=== PATIENT | female | born 1960 | race Caucasian/White ===

== ENCOUNTER → 2020-04-06 09:39 | Outpatient (BNVA) | payer OTHER, SELFPAY | PROVIDERS: PCP Internal Medicine; Referring Provider Internal Medicine; Visit Provider Hospitalist | DX: R91.8 Other nonspecific abnormal finding of lung field (principal); J18.9 Pneumonia, unspecified organism; J44.9 Chronic obstructive pulmonary disease, unspecified; Z87.891 Personal history of nicotine dependence; Z23 Encounter for immunization | CPT/HCPCS: 90686 ==

== ENCOUNTER → 2020-05-01 11:22 | Outpatient (BNVA) | payer OTHER, SELFPAY | PROVIDERS: PCP Internal Medicine; Visit Provider Surgery | DX: R91.8 Other nonspecific abnormal finding of lung field (principal) | CPT/HCPCS: 99204 ==

== ENCOUNTER → 2020-10-20 15:04 | Outpatient (BNVA) | payer OTHER, SELFPAY | PROVIDERS: PCP Internal Medicine; Visit Provider Hospitalist ==

== ENCOUNTER → 2021-04-29 15:13 | Outpatient (BNVA) | payer OTHER, SELFPAY | PROVIDERS: PCP Internal Medicine; Visit Provider Hospitalist ==

== ENCOUNTER → 2021-09-17 15:05 | Outpatient (BNVA) | payer OTHER, SELFPAY | PROVIDERS: PCP Internal Medicine; Visit Provider Hospitalist | DX: J44.9 Chronic obstructive pulmonary disease, unspecified (principal); J18.9 Pneumonia, unspecified organism; R91.8 Other nonspecific abnormal finding of lung field ==

== ENCOUNTER 2022-08-01 11:21 | Outpatient (REF) | payer MEDICAID, SELFPAY ==
--- NOTE | ~2022-08-01 | XR_ITS ---
EXAMINATION: XR CHEST CLINICAL INFORMATION: Bronchopneumonia COMPARISON: Chest CT 09/07/2021 TECHNIQUE: 2 views of the chest were obtained. FINDINGS: No focal consolidation, pulmonary edema, or pleural effusion. Right upper lobe mixed attenuation lesion demonstrated on the is not apparent radiographically. Normal cardiomediastinal silhouette. XR/XR chest 2V IMPRESSION: Unremarkable examination.
== END 2022-08-01 11:22 | disposition home or self-care (01) ==
LOC: HO.XRAY 11:21
PROVIDERS: PCP Internal Medicine; Visit Provider Hospitalist
DX: J18.0 Bronchopneumonia, unspecified organism (principal); R91.8 Other nonspecific abnormal finding of lung field; J18.9 Pneumonia, unspecified organism; J41.0 Simple chronic bronchitis
CPT/HCPCS: 71046; 99212

== ENCOUNTER → 2022-08-18 09:52 | Outpatient (BNVA) | payer MEDICAID, SELFPAY | PROVIDERS: PCP Internal Medicine; Visit Provider Hospitalist | DX: R91.8 Other nonspecific abnormal finding of lung field (principal); J41.0 Simple chronic bronchitis; J18.9 Pneumonia, unspecified organism | CPT/HCPCS: 99212 ==

== ENCOUNTER → 2022-10-14 10:47 | Outpatient (BNVA) | payer OTHER, SELFPAY | PROVIDERS: PCP Internal Medicine; Visit Provider Surgery | DX: R91.1 Solitary pulmonary nodule (principal) | CPT/HCPCS: 99202 ==

== ENCOUNTER 2022-11-08 09:15 | Outpatient (REF) | payer OTHER, SELFPAY ==
--- NOTE | 2022-11-08 10:00 | PFT_ITS ---
Forced vital capacity 78%, FEV1 79%, FEV1/FVC ratio is 77. [id number] 68% and MVV is 79%. Post bronchodilator therapy, there is no significant change. Total lung capacity 102%. Residual volume 107%. Diffusion capacity 114% CONCLUSION: There is possible very mild degree of small airway obstructive disorder with minimal improvement after bronchodilator therapy. Clinical correlation is recommended. MD PRIYANK Santos/MODL / [id number]
== END 2022-11-08 09:16 | disposition home or self-care (01) ==
LOC: HO.RESP 09:15
PROVIDERS: PCP Internal Medicine; Visit Provider Surgery
DX: R91.1 Solitary pulmonary nodule (principal)
CPT/HCPCS: 94010; 94727; 94729

== ENCOUNTER → 2022-11-11 11:11 | Outpatient (BNVA) | payer OTHER, SELFPAY | PROVIDERS: PCP Internal Medicine; Visit Provider Surgery | DX: R91.1 Solitary pulmonary nodule (principal); Z87.891 Personal history of nicotine dependence | CPT/HCPCS: 99212 ==

== ENCOUNTER 2022-12-15 09:49 | Outpatient (REF) | payer OTHER, SELFPAY ==
--- NOTE | ~2022-12-15 | CT_ITS ---
EXAMINATION: CT CHEST WITHOUT CONTRAST CLINICAL INFORMATION: Pulmonary nodule follow-up COMPARISON: Chest CT 09/20/2022 TECHNIQUE: Multidetector volumetric CT imaging of the chest was done. Axial MIP volume rendering provided. Sagittal and coronal reformatted images were obtained. This CT examination was performed using dose optimization techniques as appropriate, variously including the following: *Automated exposure control *Adjustment of mA and/or kV according to patient size (this includes techniques or standardized protocols for targeted exams where dose is matched to indication/reason for exam; i.e. extremities or head) *Use of iterative reconstruction technique DLP: 111 mGy-cm FINDINGS: Central airways are patent. Lungs are adequately aerated. Mild to moderate emphysematous changes are again noted. Stable size and appearance of mixed right upper lobe lesion demonstrating a central cystic focus with a peripheral groundglass halo. No new suspicious pulmonary nodules are visualized. No pleural effusion or pneumothorax. The heart is normal in size. Coronary artery calcifications are present. There is no pericardial effusion. Normal caliber thoracic aorta. No gross mediastinal or hilar lymphadenopathy appreciated on today's noncontrast imaging. No pathologically enlarged axillary lymph nodes. Visualized portion of the upper abdomen again demonstrate a left hepatic cyst. Mild to moderate diffuse degenerative changes of the spine. CT/CT chest wo IV con IMPRESSION: Stable size and appearance of mixed right upper lobe lesion. No new suspicious pulmonary nodules visualized. Fleischner guidelines were followed.
== END 2022-12-15 09:50 | disposition home or self-care (01) ==
LOC: HO.CT 09:49
PROVIDERS: PCP Nurse Practitioner Family; Visit Provider Surgery
DX: R91.1 Solitary pulmonary nodule (principal)
CPT/HCPCS: 71250

== ENCOUNTER 2023-01-16 15:41 | Outpatient (AMB) | payer OTHER, SELFPAY ==
[2023-01-16 15:50] VITALS: BP 136/60; PULSE 73; O2SAT 99; BMI 26.4
--- NOTE | 2023-01-16 15:50 | A.OFFVIS_ITS ---
Intake Vital Signs 01/16/23 15:50 Height 4 ft 8 in Weight 117 lb 15.157 oz BMI 26.4 BP 136/60 Blood Pressure Location Rt brachial Position Sitting Pulse 73 Pulse Source Pulse Oximeter Pulse Oximetry (%) 99 Oxygen Delivery Method Room Air Intake Visit Reasons: COPD Telecommunications Linesworker Required: No Allergies Keflex Allergy (Mild, Uncoded 01/16/23 15:54) Swelling in throat PCN Allergy (Mild, Uncoded 01/16/23 15:54) Itches and Rash HPI HPI Comments History of Present Illness Details The patient is a 62-year-old woman with a known history of asthma COPD overlap syndrome, mold allergies in pulmonary nodules. The patient has had multiple pulmonary nodules which appeared to be ground-glass the or subsolid in nature. Apparently manifesting more in the upper lung zones. Her last CT scan of the chest was done back in November of 2017 demonstrating stable nodular densities when compared to 2017. At this point the patient continues to smoke unfortunately. She is trying to cut down. At this she is high risk for malignancy. Has a significant family history of different cancers in the family. Therefore this point the patient is to be re-evaluated. In the meantime back in June she was diagnosed with the flu. She was given Tamiflu and also diagnosed with a COPD exacerbation. She was given prednisone and subsequently was also giving antibiotics have so she was not getting any better. She still having wo rsening cough productive in nature along with shortness of breath. 02/10/2020 the patient is here for pulmonary follow-up visit. Overall she feels like she is getting worse. She is developing more shortness of breath and also cough. Moderate severity. She is using her inhaler but is only partially helpful. In addition to that we did look at her CT scan of the chest that she had back in October of 2019 which demonstrated the persistent ground-glass opacities in a centrilobular distribution mainly in the upper lung zones. In addition to that appears to have a subsolid density without ground-glass component measuring 1.5 cm in size. This is bigger than when she had a CT scan back in 2015. Therefore is concerning of a smoldering malignant process. However, she also has other inflammatory changes 2nd be manifesting in this fashion. She understands that she needs to quit smoking. We did talk about different alternatives at this point she is going to try just continue to cut down further as she has gone from 3 packs to just 10 cigarettes a day. Will plan to get the CT scan 6 months from her prior and will discuss further interventions depending on its size. In the meantime will optimize respiratory therapy and hopefully the patient continue cutting down on the cigarette smoking. 09/17/2021 the patient is here for a pulmonary follow-up visit. Recently she lost her sister and she went to her in [place]. She has been significantly affected by this loss. She is still grieving. Unfortunately because of that she continues to smoke cigarettes. She understands the ci garettes are causing significant harm in her chest. She continues to require her inhalers due to the significant inflammation the smoking as cost or. On previous CT scans we have looked that she does have areas of central lobular ground-glass opacities consistent with respiratory bronchiolitis interstitial lung disease related To the smoking. In addition to that she did have a recent CT scan of the chest that we personally reviewed demonstrating interval increase in the right-sided ground-glass subsolid nodular density. She was evaluated by thoracic surgery in the past. At that time the nodule was not changing much. Will present her getting to a conference because the concerns that this could be a smoldering malignant process. Since 2019 this nodule has significant increase in size. Although she does have other areas of ground-glass opacities this nodule appears to be a different process altogether. Smoldering malignancy is in the in the differential. 08/01/2022 the patient is here for a pulmonary follow-up visit. She was last seen about a year ago. The patient recently came back from [place]. She apparently developed a cough and chest congestion which she was there. Seemed to have worsened when she got back to this mass uses. She has been having increasing chest congestion. Difficult to expectorate. Also having some shortness of breath and chest discomfort. The discomfort is actually more in her back in the mid back area moderate severity. Some respiratory basic component. On examination the patient does have been improved breath sounds overall except in the left base which she has rhonchi crackles concerning for bronchopneumonia. Will go ahead and treated for bronchopneumonia. She is also going to have a chest x-ray. She also continues with respiratory therapy with good response. 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 08/18/2022 the patient is here for a pulmonary follow-up visit. She completed the prednisone and also the Levaquin. She feels better. The cough is better. She still has some shortness of breath and still feels tired. We did review her chest x-ray demonstrating no acute disease although clinically she did have crackles in the left base. She continues with the inhaler therapy which is helpful. We did review her last CT scan of the chest that was done back in July 2021. the patient does have concerning pulmonary nodule summer subsolid in nature. Therefore, will repeat her CT scan 1 year from her last. The patient does have a smoking history therefore high risk for cancer. 01/16/2023 the patient is here for pulmonary follow-up visit. Since we spoke the patient was evaluated by thoracic surgery and she did undergo a right upper lobe lobectomy for lung cancer. The patient also has significant edematous hyperplasia in the right upper lobe suggesting premalignant conditions. She does not have any other significant nodules on the left hemithorax or in the right lower lobe but, I explained to the patient that these findings with suggest that needs to be monitored very closely for any recurrent cancer. The meantime she continues use her respiratory therapy as prescribed. Postoperatively she did develop worsening chest tightness and wheezing and productive cough. She was treated with ciprofloxacin. Will go ahead and give her a 2nd course of antibiotics with doxycycline and also start him budesonide to help her with her wheezing and chest tightness. If the patient is no better she can start prednisone. However, hold off on the prednisone for now to allow better wound healing. If the patient worsens she is to call us for an earlier assessment. The patient also has been complaining daytime drowsiness. EPWORTH score 10/24. Documented apnea noted and also snorring documented. [facility] Medical History (Updated 01/16/23 @ 21:07 by aPulo Brunner MD) Bronchopneumonia COPD (chronic obstructive pulmonary disease) Lung cancer Pneumonitis Pulmonary nodule Pulmonary nodules Tobacco dependence Family History Other Testicular cancer Social History Patient Tobacco Use Status: Former Tobacco user Tobacco use type: Cigarette Years Smoked: 40+ years Review of Systems Const Reports daytime sleepiness, Denies night sweats, Reports snoring and Reports stops breathing during sleep Eyes Reports as per HPI ENT Denies change in voice, Denies lip swelling, Denies mouth pain, Reports nasal congestion, Reports nasal discharge and Denies tongue swelling Card Denies chest pain and Reports dyspnea on exertion Resp Denies change in phlegm color, Reports chest congestion, Reports cough, Denies hemoptysis, Reports pain on inspiration, Reports pain with cough, Reports dyspnea on exertion, Reports snoring and Reports wheezing GI Denies abdominal pain Musc Denies no additional complaints and Reports tingling Neuro Denies Neuro-related abnormal movements, Reports tingling and Reports paresthesias Psych Denies no additional complaints [place]/Lymph Denies easy bleeding and Denies lymphadenopathy Aller/Immun Denies lip swelling, Denies tongue swelling and Reports wheezing Physical Exam Vital Signs: Last Vital Signs Pulse 73 01/16/23 15:50 BP 136/60 01/16/23 15:50 Pulse Ox 99 01/16/23 15:50 Oxygen Delivery Method Room Air 01/16/23 15:50 BMI result Body Mass Index 26.4 Const General: alert Neck Neck: Yes normal visual inspection, Yes full ROM and Yes no lymphadenopathy Chest Chest palpation & inspection: normal inspection of the chest Resp Auscultation: no crackles, no rhonchi, no wheezes and diminished lung sounds Cardio Rate: regular rate Rhythm: regular rhythm Heart sounds: S1 normal heart sound present and S2 normal heart sound present GI Palpation (GI): Soft to palpation and nontender Auscultation: normal bowel sounds General: Yes no CVA tenderness Back/Spine/Pelvis Back: no CVA tenderness Skin General skin exam: rashes and/or lesions noted Assessment & Plan Assessment & Plan (1) COPD (chronic obstructive pulmonary disease): Code(s): J44.9 - Chronic obstructive pulmonary disease, unspecified Qualifiers: COPD type: chronic bronchitis Chronic bronchitis type: simple Qualified Code(s): J41.0 - Simple chronic bronchitis (2) Lung cancer: Code(s): C34.90 - Malignant neoplasm of unspecified part of unspecified bronchus or lung (3) YASMANI (obstructive sleep apnea): Code(s): G47.33 - Obstructive sleep apnea (adult) (pediatric) Plan CT chest per Thoracic surgery protocol continue Breztri Nebulizer with duoneb 2-3 times aday Add BUdesonide daily Doxycycline x 14 days Prednisone if no better home sleep study tobacco cessation: patch F/U 3-4 months Medications: New doxycycline monohydrate 100 mg PO BID 14 days 28 tabs 0RF prednisone PO daily; Take 2 tabs daily x 5 days, then 1 tablet daily x 5 days 10 days 15 tabs 0RF Quality Reporting (2019) Adult ([facility] 13808/10/68) Smoking risk assessment performed?: Yes Patient Tobacco Use Status: Former Tobacco user Coding Level of Care Code Est Pt Level 4 (55660) Diagnoses COPD (chronic obstructive pulmonary disease) J41.0 COPD type: chronic bronchitis Chronic bronchitis type: simple Lung cancer C34.90 YASMANI (obstructive sleep apnea) G47.33 Time Spent (min) 20
== END 2023-01-16 16:21 | disposition home or self-care (01) ==
PROVIDERS: PCP Nurse Practitioner Family; Visit Provider Hospitalist
DX: J41.0 Simple chronic bronchitis (principal); C34.90 Malignant neoplasm of unspecified part of unspecified bronchus or lung; G47.33 Obstructive sleep apnea (adult) (pediatric)
CPT/HCPCS: 99214

== ENCOUNTER → 2023-01-16 15:41 | Outpatient (BNVA) | payer OTHER, SELFPAY | PROVIDERS: PCP Nurse Practitioner Family; Visit Provider Hospitalist | DX: J41.0 Simple chronic bronchitis (principal); G47.33 Obstructive sleep apnea (adult) (pediatric); C34.90 Malignant neoplasm of unspecified part of unspecified bronchus or lung | CPT/HCPCS: 99212 ==

== ENCOUNTER 2023-04-05 11:20 | Outpatient (AMB) | payer OTHER, SELFPAY ==
[2023-04-05 11:23] VITALS: PULSE 82; O2SAT 96; BMI 26.4
--- NOTE | 2023-04-05 11:23 | MHC.OFFVIS ---
Intake Vital Signs 04/05/23 11:23 Height 4 ft 8 in Weight 117 lb 15.157 oz BMI 26.4 Pulse 82 Pulse Source Pulse Oximeter Pulse Oximetry (%) 96 Oxygen Delivery Method Room Air Intake Visit Reasons: COPD Diploma Maker Required: No Allergies Keflex Allergy (Mild, Uncoded 04/05/23 11:25) Swelling in throat PCN Allergy (Mild, Uncoded 04/05/23 11:25) Itches and Rash HPI HPI Comments History of Present Illness Details The patient is a 62-year-old woman with a known history of asthma COPD overlap syndrome, mold allergies in pulmonary nodules. The patient has had multiple pulmonary nodules which appeared to be ground-glass the or subsolid in nature. Apparently manifesting more in the upper lung zones. Her last CT scan of the chest was done back in November of 2017 demonstrating stable nodular densities when compared to 2017. At this point the patient continues to smoke unfortunately. She is trying to cut down. At this she is high risk for malignancy. Has a significant family history of different cancers in the family. Therefore this point the patient is to be re-evaluated. In the meantime back in June she was diagnosed with the flu. She was given Tamiflu and also diagnosed with a COPD exacerbation. She was given prednisone and subsequently was also giving antibiotics have so she was not getting any better. She still having worsening cough productive in nature along with shortness of breath. 02/10/2020 the patient is here for pulmonary follow-up visit. Overall she feels like she is getting worse. She is developing more shortness of breath and also cough. Moderate severity. She is using her inhaler but is only partially helpful. In addition to that we did look at her CT scan of the chest that she had back in October of 2019 which demonstrated the persistent ground-glass opacities in a centrilobular distribution mainly in the upper lung zones. In addition to that appears to have a subsolid density without ground-glass component measuring 1.5 cm in size. This is bigger than when she had a CT scan back in 2015. Therefore is concerning of a smoldering malignant process. However, she also has other inflammatory changes 2nd be manifesting in this fashion. She understands that she needs to quit smoking. We did talk about different alternatives at this point she is going to try just continue to cut down further as she has gone from 3 packs to just 10 cigarettes a day. Will plan to get the CT scan 6 months from her prior and will discuss further interventions depending on its size. In the meantime will optimize respiratory therapy and hopefully the patient continue cutting down on the cigarette smoking. 09/17/2021 the patient is here for a pulmonary follow-up visit. Recently she lost her sister and she went to her in [place]. She has been significantly affected by this loss. She is still grieving. Unfortunately because of that she continues to smoke cigarettes. She understands the cigarettes are causing significant harm in her chest. She continues to require her inhalers due to the significant inflammation the smoking as cost or. On previous CT scans we have looked that she does have areas of central lobular ground-glass opacities consistent with respiratory bronchiolitis interstitial lung disease related To the smoking. In addition to that she did have a recent CT scan of the chest that we personally reviewed demonstrating interval increase in the right-sided ground-glass subsolid nodular density. She was evaluated by thoracic surgery in the past. At that time the nodule was not changing much. Will present her getting to a conference because the concerns that this could be a smoldering malignant process. Since 2019 this nodule has significant increase in size. Although she does have other areas of ground-glass opacities this nodule appears to be a different process altogether. Smoldering malignancy is in the in the differential. 08/01/2022 the patient is here for a pulmonary follow-up visit. She was last seen about a year ago. The patient recently came back from [place]. She apparently developed a cough and chest congestion which she was there. Seemed to have worsened when she got back to this mass uses. She has been having increasing chest congestion. Difficult to expectorate. Also having some shortness of breath and chest discomfort. The discomfort is actually more in her back in the mid back area moderate severity. Some respiratory basic component. On examination the patient does have been improved breath sounds overall except in the left base which she has rhonchi crackles concerning for bronchopneumonia. Will go ahead and treated for bronchopneumonia. She is also going to have a chest x-ray. She also continues with respiratory therapy with good response. 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 08/18/2022 the patient is here for a pulmonary follow-up visit. She completed the prednisone and also the Levaquin. She feels better. The cough is better. She still has some shortness of breath and still feels tired. We did review her chest x-ray demonstrating no acute disease although clinically she did have crackles in the left base. She continues with the inhaler therapy which is helpful. We did review her last CT scan of the chest that was done back in July 2021. the patient does have concerning pulmonary nodule summer subsolid in nature. Therefore, will repeat her CT scan 1 year from her last. The patient does have a smoking history therefore high risk for cancer. 01/16/2023 the patient is here for pulmonary follow-up visit. Since we spoke the patient was evaluated by thoracic surgery and she did undergo a right upper lobe lobectomy for lung cancer. The patient also has significant edematous hyperplasia in the right upper lobe suggesting premalignant conditions. She does not have any other significant nodules on the left hemithorax or in the right lower lobe but, I explained to the patient that these findings with suggest that needs to be monitored very closely for any recurrent cancer. The meantime she continues use her respiratory therapy as prescribed. Postoperatively she did develop worsening chest tightness and wheezing and productive cough. She was treated with ciprofloxacin. Will go ahead and give her a 2nd course of antibiotics with doxycycline and also start him budesonide to help her with her wheezing and chest tightness. If the patient is no better she can start prednisone. However, hold off on the prednisone for now to allow better wound healing. If the patient worsens she is to call us for an earlier assessment. The patient also has been complaining daytime drowsiness. EPWORTH score 10/24. Documented apnea noted and also snorring documented. 04/05/2023 the patient is here for pulmonary follow-up visit. The patient continues to do well after her surgery for her lung cancer. Stage I is did not need any adjuvant therapies. She does complaint of a cough which has been productive in nature since after surgery. Has not gotten any worse but just has not gotten any better either. Denies any fevers or chills. Denies any worsening shortness of breath. Will go ahead and treat her with doxycycline for potential smoldering infection. Unfortunately to the patient continues to smoke cigarettes. She is been struggling specially when she gets agitated. Will go ahead and prescribe her nicotine patches and also hopefully she can get the Nicotrol inhaler that she can use as breakthrough. She is following closely with thoracic surgery in her next CT scan be in June. If her cough is no better she can always call we can do a chest x-ray on earlier time. However, this point take as necessary. [facility] Medical History (Updated 04/05/23 @ 22:14 by Paulo Brunner MD) Lung cancer Pulmonary nodule Bronchopneumonia Tobacco dependence Pneumonitis Pulmonary nodules COPD (chronic obstructive pulmonary disease) Family History Other Testicular cancer Social History Patient Tobacco Use Status: Former Tobacco user Tobacco use type: Cigarette Years Smoked: 40+ years Review of Systems Const Reports difficulty sleeping and Denies night sweats Eyes Reports as per HPI ENT Denies change in voice, Denies lip swelling, Denies mouth pain, Reports nasal congestion, Reports nasal discharge and Denies tongue swelling Card Denies chest pain and Reports dyspnea on exertion Resp Denies change in phlegm color, Reports chest congestion, Reports cough, Denies hemoptysis, Denies pain on inspiration, Denies pain with cough, Reports dyspnea on exertion and Denies wheezing GI Denies abdominal pain Musc Denies no additional complaints and Reports tingling Neuro Denies Neuro-related abnormal movements, Reports tingling and Reports paresthesias Psych Denies no additional complaints U[place]ano/Lymph Denies easy bleeding and Denies lymphadenopathy Aller/Immun Denies lip swelling, Denies tongue swelling and Denies wheezing Physical Exam Vital Signs: Last Vital Signs Pulse 82 04/05/23 11:23 Pulse Ox 96 04/05/23 11:23 Oxygen Delivery Method Room Air 04/05/23 11:23 BMI result Body Mass Index 26.4 Const General: alert Neck Neck: Yes normal visual inspection, Yes full ROM and Yes no lymphadenopathy Chest Chest palpation & inspection: normal inspection of the chest Resp Auscultation: no crackles, no rhonchi, no wheezes and diminished lung sounds Cardio Rate: regular rate Rhythm: regular rhythm Heart sounds: S1 normal heart sound present and S2 normal heart sound present GI Palpation (GI): Soft to palpation and nontender Auscultation: normal bowel sounds General: Yes no CVA tenderness Back/Spine/Pelvis Back: no CVA tenderness Skin General skin exam: rashes and/or lesions noted Assessment & Plan Assessment & Plan (1) COPD (chronic obstructive pulmonary disease): Code(s): J44.9 - Chronic obstructive pulmonary disease, unspecified Qualifiers: COPD type: chronic bronchitis Chronic bronchitis type: mixed simple and mucopurulent Qualified Code(s): J41.8 - Mixed simple and mucopurulent chronic bronchitis (2) Lung cancer: Code(s): C34.90 - Malignant neoplasm of unspecified part of unspecified bronchus or lung Qualifiers: Laterality: right Lung location: upper lobe of lung Qualified Code(s): C34.11 - Malignant neoplasm of upper lobe, right bronchus or lung (3) YASMANI (obstructive sleep apnea): Code(s): G47.33 - Obstructive sleep apnea (adult) (pediatric) Plan CT chest per Thoracic surgery protocol continue Breztri Nebulizer with duoneb 2-3 times aday as needed Doxycycline x 14 days tobacco cessation: patch/nicotrol inhaler F/U 4-6 months Medications: New nicotine 1 patch transdermal DAILY 28 days 28 ea 3RF doxycycline monohydrate 100 mg PO BID 14 days 28 tabs 0RF Changed From albuterol sulfate 90 mcg/actuation inhalation To albuterol sulfate 90 mcg/actuation 2 puffs inhalation Q6H 30 days PRN 8.5 grams 11RF bronchospasm Quality Reporting (2019) Adult ([facility] 138/08/10/68) Smoking risk assessment performed?: Yes Patient Tobacco Use Status: Former Tobacco user Coding Level of Care Code Est Pt Level 4 (20086) Diagnoses Mixed simple and mucopurulent chronic bronchitis J41.8 COPD type: chronic bronchitis Chronic bronchitis type: mixed simple and mucopurulent Malignant neoplasm of upper lobe of right lung C34.11 Laterality: right Lung location: upper lobe of lung YASMANI (obstructive sleep apnea) G47.33 Time Spent (min) 17
== END 2023-04-05 11:47 | disposition home or self-care (01) ==
PROVIDERS: PCP Nurse Practitioner Family; Visit Provider Hospitalist
DX: J41.8 Mixed simple and mucopurulent chronic bronchitis (principal); C34.11 Malignant neoplasm of upper lobe, right bronchus or lung; G47.33 Obstructive sleep apnea (adult) (pediatric)
CPT/HCPCS: 99214

== ENCOUNTER → 2023-04-05 11:20 | Outpatient (BNVA) | payer OTHER, SELFPAY | PROVIDERS: PCP Nurse Practitioner Family; Visit Provider Hospitalist | DX: J41.8 Mixed simple and mucopurulent chronic bronchitis (principal); C34.11 Malignant neoplasm of upper lobe, right bronchus or lung; G47.33 Obstructive sleep apnea (adult) (pediatric) | CPT/HCPCS: 99212 ==

== ENCOUNTER 2023-10-10 11:19 | Outpatient (AMB) | payer OTHER, SELFPAY ==
--- NOTE | 2023-10-10 11:30 | A.OFFVIS_ITS ---
Vital Signs 10/10/23 11:31 Height 4 ft 8 in Weight 117 lb 15.157 oz BMI 26.4 BP 138/70 Blood Pressure Location Lt brachial Position Sitting Pulse 66 Pulse Source Pulse Oximeter Pulse Oximetry (%) 100 Oxygen Delivery Method Room Air Intake Visit Reasons: COPD Outside Industrial Sales Representative Required: No Allergies Keflex Allergy (Mild, Uncoded 10/10/23 11:34) Swelling in throat PCN Allergy (Mild, Uncoded 10/10/23 11:34) Itches and Rash HPI Comments Details: The patient is a 62-year-old woman with a known history of asthma COPD overlap syndrome, mold allergies in pulmonary nodules. The patient has had multiple pulmonary nodules which appeared to be ground-glass the or subsolid in nature. Apparently manifesting more in the upper lung zones. Her last CT scan of the chest was done back in November of 2017 demonstrating stable nodular densities when compared to 2017. At this point the patient continues to smoke unfortunately. She is trying to cut down. At this she is high risk for malignancy. Has a significant family history of different cancers in the family. Therefore this point the patient is to be re-evaluated. In the meantime back in June she was diagnosed with the flu. She was given Tamiflu and also diagnosed with a COPD exacerbation. She was given prednisone and subsequently was also giving anti biotics have so she was not getting any better. She still having worsening cough productive in nature along with shortness of breath. 02/10/2020 the patient is here for pulmonary follow-up visit. Overall she feels like she is getting worse. She is developing more shortness of breath and also cough. Moderate severity. She is using her inhaler but is only partially helpful. In addition to that we did look at her CT scan of the chest that she had back in October of 2019 which demonstrated the persistent ground-glass opacities in a centrilobular distribution mainly in the upper lung zones. In addition to that appears to have a subsolid density without ground-glass component measuring 1.5 cm in size. This is bigger than when she had a CT scan back in 2015. Therefore is concerning of a smoldering malignant process. However, she also has other inflammatory changes 2nd be manifesting in this fashion. She understands that she needs to quit smoking. We did talk about different alternatives at this point she is going to try just continue to cut down further as she has gone from 3 packs to just 10 cigarettes a day. Will plan to get the CT scan 6 months from her prior and will discuss further interventions depending on its size. In the meantime will optimize respiratory therapy and hopefully the patient continue cutting down on the cigarette smoking. 09/17/2021 the patient is here for a pulmonary follow-up visit. Recently she lost her sister and she went to her in [place]. She has been significantly affected by this loss. She is still grieving. Unfortunately because of that she continues to smoke cigarettes. She understands the cigarettes are causing significant harm in her chest. She continues to require her inhalers due to the significant inflammation the smoking as cost or. On previous CT scans we have looked that she does have areas of central lobular ground-glass opacities consistent with respiratory bronchiolitis interstitial lung disease related To the smoking. In addition to that she did have a recent CT scan of the chest that we personally reviewed demonstrating interval increase in the right-sided ground-glass subsolid nodular density. She was evaluated by thoracic surgery in the past. At that time the nodule was not changing much. Will present her getting to a conference because the concerns that this could be a smoldering malignant process. Since 2019 this nodule has significant increase in size. Although she does have other areas of ground-glass opacities this nodule appears to be a different process altogether. Smoldering malignancy is in the in the differential. 08/01/2022 the patient is here for a pulmonary follow-up visit. She was last seen about a year ago. The patient recently came back from [place]. She apparently developed a cough and chest congestion which she was there. Seemed to have worsened when she got back to this mass uses. She has been having increasing chest congestion. Difficult to expectorate. Also having some shortness of breath and chest discomfort. The discomfort is actually more in her back in the mid back area moderate severity. Some respiratory basic component. On examination the patient does have been improved breath sounds overall except in the left base which she has rhonchi crackles concerning for bronchopneumonia. Will go ahead and treated for bronchopneumonia. She is also going to have a chest x-ray. She also continues with respiratory therapy with good response. 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 08/18/2022 the patient is here for a pulmonary follow-up visit. She completed the prednisone and also the Levaquin. She feels better. The cough is better. She still has some shortness of breath and still feels tired. We did review her chest x-ray demonstrating no acute disease although clinically she did have crackles in the left base. She continues with the inhaler therapy which is helpful. We did review her last CT scan of the chest that was done back in July 2021. the patient does have concerning pulmonary nodule summer subsolid in nature. Therefore, will repeat her CT scan 1 year from her last. The patient does have a smoking history therefore high risk for cancer. 01/16/2023 the patient is here for pulmonary follow-up visit. Since we spoke the patient was evaluated by thoracic surgery and she did undergo a right upper lobe lobectomy for lung cancer. The patient also has significant edematous hyperplasia in the right upper lobe suggesting premalignant conditions. She does not have any other significant nodules on the left hemithorax or in the right lower lobe but, I explained to the patient that these findings with suggest that needs to be monitored very closely for any recurrent cancer. The meantime she continues use her respiratory therapy as prescribed. Postoperatively she did develop worsening chest tightness and wheezing and productive cough. She was treated with ciprofloxacin. Will go ahead and give her a 2nd course of antibiotics with doxycycline and also start him budesonide to help her with her wheezing and chest tightness. If the patient is no better she can start prednisone. However, hold off on the prednisone for now to allow better wound healing. If the patient worsens she is to call us for an earlier assessment. The patient also has been complaining daytime drowsiness. EPWORTH score 10/24. Documented apnea noted and also snorring documented. 04/05/2023 the patient is here for pulmonary follow-up visit. The patient continues to do well after her surgery for her lung cancer. Stage I is did not need any adjuvant therapies. She does complaint of a cough which has been productive in nature since after surgery. Has not gotten any worse but just has not gotten any better either. Denies any fevers or chills. Denies any worsening shortness of breath. Will go ahead and treat her with doxycycline for potential smoldering infection. Unfortunately to the patient continues to smoke cigarettes. She is been struggling specially when she gets agitated. Will go ahead and prescribe her nicotine patches and also hopefully she can get the Nicotrol inhaler that she can use as breakthrough. She is following closely with thoracic surgery in her next CT scan be in June. If her cough is no better she can always call we can do a chest x-ray on earlier time. However, this point take as necessary. 10/10/2023 the patient is here for a pulmonary follow-up visit. Since we last spoke seems to be doing okay now. The patient did follow-up with thoracic surgery and did have a CT scan demonstrating no recurrence of her cancer. The patient continues use her inhalers on a regular basis and still needs her rescue medicine once or twice a day. She does get short of breath and chest tightness at times. She has no longer smoking which is reassuring. She did have an episode where she started developing left shoulder discomfort and palpitations and shortness of breath. EMS was called to the scene and the patient was taken to [facility] where she was evaluated. There she had a CTA. She ruled out for a pulmonary emboli. I did personally review her CT scan. She did have some postoperative changes. In addition to that had some ground-glass opacities of the right base. This suggests the possibility of inflammation versus infectious lower respiratory process. In addition to that the patient did have an echocardiogram which is reassuring. Her cardiac enzymes were indeed elevated. She was recommended to stay and have a stress test as an inpatient but the patient was reluctant and therefore she went home. Now she still complaining of some shortness breath. [facility] Medical History (Updated 10/10/23 @ 11:57 by Paulo Brunner MD) Palpitation Elevated troponin Lung cancer Pulmonary nodule Bronchopneumonia Tobacco dependence Pneumonitis Pulmonary nodules COPD (chronic obstructive pulmonary disease) Family History Other Testicular cancer Social History Patient Tobacco Use Status: Former Tobacco user Tobacco use type: Cigarette Years Smoked: 40+ years Review of Systems Const Reports difficulty sleeping and Denies night sweats Eyes Reports as per HPI ENT Denies change in voice, Denies lip swelling, Denies mouth pain, Reports nasal congestion, Reports nasal discharge and Denies tongue swelling Card Reports as per HPI, Reports chest pain, Reports palpitations and Reports dyspnea on exertion Resp Denies change in phlegm color, Reports chest congestion, Reports cough, Denies hemoptysis, Denies pain on inspiration, Denies pain with cough, Reports dyspnea on exertion and Denies wheezing GI Denies abdominal pain Musc Denies no additional complaints and Reports tingling Neuro Denies Neuro-related abnormal movements, Reports tingling and Reports paresthesias Psych Denies no additional complaints Endo Reports palpitations Urbano/Lymph Denies easy bleeding and Denies lymphadenopathy Aller/Immun Denies lip swelling, Denies tongue swelling and Denies wheezing Physical Exam Vital Signs: Last Vital Signs Pulse 66 10/10/23 11:31 BP 138/70 10/10/23 11:31 Pulse Ox 100 10/10/23 11:31 Oxygen Delivery Method Room Air 10/10/23 11:31 BMI result Body Mass Index 26.4 Const General: alert Neck Neck: Yes normal visual inspection, Yes full ROM and Yes no lymphadenopathy Chest Chest palpation & inspection: normal inspection of the chest Resp Auscultation: no crackles, no rhonchi, no wheezes and diminished lung sounds Cardio Rate: regular rate Rhythm: regular rhythm Heart sounds: S1 normal heart sound present and S2 normal heart sound present GI Palpation (GI): Soft to palpation and nontender Auscultation: normal bowel sounds General: Yes no CVA tenderness Back/Spine/Pelvis Back: no CVA tenderness Skin General skin exam: rashes and/or lesions noted Quality Reporting (2019) Adult ([facility] 138/08/10/68) Smoking risk assessment performed?: Yes Patient 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 Assessment & Plan Assessment & Plan (1) COPD (chronic obstructive pulmonary disease): Code(s): J44.9 - Chronic obstructive pulmonary disease, unspecified Category: Medical Qualifiers: COPD type: chronic bronchitis Chronic bronchitis type: mixed simple and mucopurulent Qualified Code(s): J41.8 - Mixed simple and mucopurulent chronic bronchitis (2) Lung cancer: Code(s): C34.90 - Malignant neoplasm of unspecified part of unspecified bronchus or lung Category: Medical Qualifiers: Laterality: right Lung location: upper lobe of lung Qualified Code(s): C34.11 - Malignant neoplasm of upper lobe, right bronchus or lung (3) YASMANI (obstructive sleep apnea): Code(s): G47.33 - Obstructive sleep apnea (adult) (pediatric) Category: Medical (4) Elevated troponin: Code(s): R79.89 - Other specified abnormal findings of blood chemistry Category: Medical (5) Palpitation: Code(s): R00.2 - Palpitations Category: Medical Plan CT chest per Thoracic surgery protocol continue Breztri Nebulizer with duoneb 2-3 times aday as needed Doxycycline x 14 days tobacco cessation: patch/nicotrol inhaler start ASA 81mg CArdiology eval F/U 6 months Orders: Referrals Cardiology Referral R00.2 - Palpitations, R79.89 - Other specified abnormal findings of blood chemistry Medications: Refilled doxycycline monohydrate 100 mg PO BID 14 days 28 tabs 0RF Coding Level of Care Code Est Pt Level 4 (20620) Diagnoses Mixed simple and mucopurulent chronic bronchitis J41.8 COPD type: chronic bronchitis Chronic bronchitis type: mixed simple and mucopurulent Malignant neoplasm of upper lobe of right lung C34.11 Laterality: right Lung location: upper lobe of lung YASMANI (obstructive sleep apnea) G47.33 Elevated troponin R79.89 Palpitation R00.2 Time Spent (min) 18
[2023-10-10 11:31] VITALS: BP 138/70; PULSE 66; O2SAT 100; BMI 26.4
== END 2023-10-10 12:02 | disposition home or self-care (01) ==
PROVIDERS: PCP Nurse Practitioner Family; Visit Provider Hospitalist
DX: J41.8 Mixed simple and mucopurulent chronic bronchitis (principal); C34.11 Malignant neoplasm of upper lobe, right bronchus or lung; G47.33 Obstructive sleep apnea (adult) (pediatric); R79.89 Other specified abnormal findings of blood chemistry; R00.2 Palpitations
CPT/HCPCS: 99214

== ENCOUNTER → 2023-10-10 11:19 | Outpatient (BNVA) | payer OTHER, SELFPAY | PROVIDERS: PCP Nurse Practitioner Family; Visit Provider Hospitalist | DX: J41.8 Mixed simple and mucopurulent chronic bronchitis (principal); C34.11 Malignant neoplasm of upper lobe, right bronchus or lung; G47.33 Obstructive sleep apnea (adult) (pediatric); R79.89 Other specified abnormal findings of blood chemistry; R00.2 Palpitations | CPT/HCPCS: 99212 ==

== ENCOUNTER 2023-10-27 10:02 | Outpatient (AMB) | payer OTHER, SELFPAY ==
[2023-10-27 10:06] VITALS: BP 128/82; PULSE 66; BMI 24.2
--- NOTE | 2023-10-27 10:06 | A.OFFVIS_ITS ---
Vital Signs 10/27/23 10:06 Height 4 ft 8 in Weight 108 lb 0.424 oz BMI 24.2 BP 128/82 Blood Pressure Location Lt brachial Position Sitting Pulse 66 Intake Visit Reasons: CREDIT CONTROLLER/ Kannan/ palpitation/ abn chemistry (urgent) Intake Note: New patient elevated trop c/o vision changes and numbness in left arm Defensive Secondary Coach Required: No Allergies Keflex Allergy (Mild, Uncoded 10/10/23 11:34) Swelling in throat PCN Allergy (Mild, Uncoded 10/10/23 11:34) Itches and Rash Medication List - Last Reconciled 10/27/23 by Amor Marcelo MD albuterol sulfate 90 mcg/actuation 2 puffs inhalation Q6H PRN 30 days aspirin 81 mg PO DAILY fgriuxgeek-nejpzixz-duzlykblvi 160-9-4.8 mcg/actuation (Breztri Aerosphere) 2 inhalations PO BID cholecalciferol (vitamin D3) 25 mcg PO DAILY doxycycline monohydrate 100 mg PO BID 14 days ipratropium-albuterol 0.5 mg-3 mg(2.5 mg base)/3 mL 3 mL inhalation Q6H PRN nebulizers As directed nicotine (Nicoderm CQ) 1 patch transdermal DAILY 28 days sertraline 50 mg PO DAILY HPI Comments Details: Thank you for referring Anastasia in cardiology consultation today for recent ED presentation and noted minimally elevated troponin levels. Patient was referred here for further evaluation. She has longstanding history of asthma/COPD overlap syndrome, pulmonary nodules, lung cancer status post lobectomy, obstructive sleep apnea. Patient says recently she was driving long distance coming back from [place] and back and forth long distance driving and while she was driving back she was feeling vague and was having visual symptoms. Subsequently she went home and decided to walk her dogs to stretch her legs because she had been driving a long distance. While doing that she was getting lightheaded. She subsequently went home and laid down because she was having left shoulder and left arm pain which continued to get worse and eventually they called the paramedics. The paramedics came here initially this had a blood pressure is okay. She is also having lot of symptoms of palpitation which she felt her heart was beating irregular and was having flip-flops. Subsequent blood pressure check by senior business manager showed markedly low blood pressure with systolic blood pressure in the 70s. Then this started IV and start giving her fluids. Blood pressures and gradually improved while transferred to the hospital. While in the hospital she had blood work done. She had a CTA for pulmonary embolism done which was negative. Troponins were flat but minimally elevated above normal limits. There was no rise and fall consistent with myocardial infarction. EKG did not show any significant ischemic changes. She also underwent an echocardiogram which showed normal LV systolic function without any regional wall motion abnormality. Because of her symptoms she was referred here for further evaluation. The cause of hypertension is not actually clear. She had no systemic or prior to the episode any symptoms. She has never had exertional chest pain although has exertional shortness of breath with chest tightness. She denies any orthopnea, PND, leg edema. She has not had any significant palpitations besides that episode that day. She said on that day she had a lot of caffeine while she was driving but had maintain a steady oral intake of fluids. Since this episode she has been noticing pain in her legs when she walks longer distances. [facility] Medical History Palpitation Elevated troponin Lung cancer Pulmonary nodule Bronchopneumonia Tobacco dependence Pneumonitis Pulmonary nodules COPD (chronic obstructive pulmonary disease) Family History Other Testicular cancer Social History Patient Tobacco Use Status: Former Tobacco user Tobacco use type: Cigarette Years Smoked: 40+ years Review of Systems Const Denies chills, Denies daytime sleepiness, Denies fatigue, Denies fever(s), Denies frequent falls, Denies poor appetite, Denies snoring, Denies stops breathing during sleep, Denies weakness, Denies weight gain and Denies weight loss Eyes Denies loss of vision ENT Denies dizziness and Denies hearing loss Card Denies chest pain, Denies claudication, Denies leg edema, Denies lightheadedness, Denies palpitations, Denies dyspnea, Denies dyspnea on exertion and Denies orthopnea Resp Denies cough, Denies excessive phlegm production, Denies dyspnea, Denies dyspnea on exertion, Denies snoring and Denies wheezing GI Denies abdominal pain, Denies hematochezia, Denies change in bowel habits, Denies nausea and Denies vomiting Denies urinary frequency and Denies dysuria Musc Denies arthralgias, Denies muscle weakness, Denies numbness and Denies other (frequent falls) Skin/Breast Denies nail changes and Denies rash Neuro Denies Abnormal speech present, Denies dizziness, Denies frequent falls, Denies loss of vision, Denies memory loss, Denies numbness and Denies weakness Psych Denies depression and Denies memory loss Endo Denies fatigue and Denies palpitations Urbano/Lymph Reports easy bruising and Reports other (anemia) Aller/Immun Denies wheezing Physical Exam Vital Signs: Last Vital Signs Pulse 66 10/27/23 10:06 BP 128/82 10/27/23 10:06 BMI result Body Mass Index 24.2 Const General: cooperative, comfortable, no acute distress, alert, awake and Physically active Nutritional Appearance: thin Orientation/consciousness: patient oriented x3 Limitations: no limitations HEENT Head: Yes normocephalic and Yes atraumatic Neck Neck: Yes trachea midline, Yes supple and Yes no JVD Resp Effort & Inspection: normal respiratory effort Auscultation: other (Coarse breath sounds at the right posterior base) Cardio Jugular venous distension: no JVD Palpation: normal PMI Rate: regular rate Rhythm: regular rhythm Heart sounds: S1 normal heart sound present, S2 normal heart sound present, no click, no gallops, no murmurs and no rubs GI Auscultation: normal bowel sounds Neuro General: patient oriented x3 and no focal motor deficits Speech: No Abnormal speech present Extrem General: Yes no clubbing, cyanosis or edema Quality Reporting (2019) Adult ([facility] 138/08/10/68) Smoking risk assessment performed?: Yes Patient Tobacco Use Status: Former Tobacco user Assessment & Plan Assessment & Plan (1) Elevated troponin: Code(s): R79.89 - Other specified abnormal findings of blood chemistry Category: Medical Plan: Minimally elevated but flat troponin in this middle-aged woman with risk factors of smoking. She is also having symptoms of suggestive of claudication. Given her significant hypotension myocardial ischemia needs to be ruled out. Is possible that her troponin elevation related to low blood pressure. There is no clear rise and fall suggestive of myocardial infarction. Would suggest the exercise myocardial perfusion imaging to evaluate for myocardial ischemia. This will be scheduled in near future. Will also suggest a lower extremity vascular ultrasound to evaluate for presence of peripheral vascular disease. Meanwhile she can continue low-dose aspirin therapy. Smoking cessation was applauded. Would check a lipid panel target goal LDL definitely below 100 mg/dL. (2) Palpitation: Code(s): R00.2 - Palpitations Category: Medical Plan: Symptoms of palpitations at the time of the whole episode a suggestive extra systoles such as PVCs and PACs. Atrial fibrillation can not be entirely ruled out. Avoidance of stimulants was discussed. Will obtain a 7 day Holter monitor to further assess for any significant arrhythmias that may change medical management. Workup for myocardial ischemia as above. Will follow up in the clinic in 6 weeks time, sooner p.r.n.. Thank you for allowing me to partake in the care Orders: Orders ECG 7 day holter monitor Today R00.2 - Palpitations US arterial duplex LE BI Today I73.9 - Peripheral vascular disease, unspecified CA echo stress exercise Today R79.89 - Other specified abnormal findings of blo od chemistry Coding Level of Care Code New Pt Level 4 (22073) Diagnoses Elevated troponin R79.89 Palpitation R00.2
== END 2023-10-27 10:56 | disposition home or self-care (01) ==
PROVIDERS: PCP Nurse Practitioner Family; Visit Provider Internal Medicine Cardiovascular Disease
DX: R79.89 Other specified abnormal findings of blood chemistry (principal); R00.2 Palpitations
CPT/HCPCS: 99204

== ENCOUNTER → 2023-10-27 10:02 | Outpatient (BNVA) | payer OTHER, SELFPAY | PROVIDERS: PCP Nurse Practitioner Family; Visit Provider Internal Medicine Cardiovascular Disease | DX: R79.89 Other specified abnormal findings of blood chemistry (principal); R00.2 Palpitations; Z79.82 Long term (current) use of aspirin | CPT/HCPCS: 99202 ==

== ENCOUNTER 2023-11-07 13:45 | Outpatient (REF) | payer OTHER, SELFPAY ==
--- NOTE | ~2023-11-07 | US_ITS ---
EXAMINATION: Noninvasive assessment of the bilateral lower extremities with ARTERIAL DUPLEX CLINICAL INFORMATION: Peripheral vascular disease, history of smoking TECHNIQUE: Duplex Doppler techniques with waveform analysis and measurement of velocities in the bilateral common femoral, profunda femoris, superficial femoral, popliteal and tibial arteries were performed. Additionally, ankle pulse volume recordings, ankle pressure measurements and ankle brachial indices were obtained of the lower extremity arterial system bilaterally. The study was performed only at rest. COMPARISON: None FINDINGS: DIRECT DUPLEX DOPPLER FINDINGS: RIGHT LEG: Common femoral artery: 96.8 cm/s, phasicity: Triphasic Profunda femoris artery: 82.0 cm/s, phasicity: Triphasic Superficial femoral artery (proximal): 52.0 cm/s, phasicity: Triphasic Superficial femoral artery (mid): 109.1 cm/s, phasicity: Biphasic Superficial femoral artery (distal): 134.6 cm/s, phasicity: Triphasic Popliteal artery: 97.4 cm/s, phasicity: Triphasic Posterior tibial artery: 86.0 cm/s, phasicity: Monophasic Peroneal artery: 52.7 cm/s, phasicity: Biphasic Anterior tibial artery: 76.6 cm/s, phasicity: Biphasic Dorsalis pedis artery: 90.0 cm/s, phasicity:Biphasic LEFT LEG: Common femoral artery: 102.9 cm/s, phasicity: Triphasic Profunda femoris artery: 95.5 cm/s, phasicity: Triphasic Superficial femoral artery (proximal): 80.8 cm/s, phasicity: Triphasic Superficial femoral artery (mid): 105.1 cm/s, phasicity: Triphasic Superficial femoral artery (distal): 136.0 cm/s, phasicity: Triphasic Popliteal artery: 88.9 cm/s, phasicity: Triphasic Posterior tibial artery: 153.4 cm/s, phasicity: Biphasic Peroneal artery: 38.7 cm/s, phasicity: Biphasic Anterior tibial artery: 35.2 cm/s, phasicity: Biphasic Dorsalis pedis artery: 33.4 cm/s, phasicity: Monophasic US/US arterial duplex LE BI IMPRESSION: Right leg: Peripheral arterial disease with mild stenosis of the distal superficial femoral artery by velocity criteria and biphasic waveform of the mid superficial femoral artery. There is monophasic waveform of the posterior tibial artery and biphasic waveform of the anterior tibial artery, peroneal artery, and dorsalis pedis artery. Left leg: Peripheral arterial disease with mild stenosis of the distal superficial femoral artery by velocity criteria. There is a biphasic waveform of the posterior tibial artery, anterior tibial artery, and peroneal artery. The dorsalis pedis artery is monophasic.
== END 2023-11-07 13:46 | disposition home or self-care (01) ==
LOC: HO.US 13:45
PROVIDERS: PCP Nurse Practitioner Family; Visit Provider Internal Medicine Cardiovascular Disease
DX: I73.9 Peripheral vascular disease, unspecified (principal)
CPT/HCPCS: 93925

== ENCOUNTER → 2023-11-07 14:46 | Outpatient (REF) | payer OTHER, SELFPAY ==
--- NOTE | 2023-11-07 14:50 | HM_ITS ---
* Total monitoring time 7 days. * Underlying rhythm is sinus with an average rate of 81/Min. * Rare supraventricular ectopy. * Rare ventricular ectopy. * No significant pauses or AV blocks. * No patient markers or symptoms in diary. MTDD
== END ==
LOC: HO.CARD 14:46
PROVIDERS: Visit Provider Internal Medicine Cardiovascular Disease
DX: R00.2 Palpitations (principal)
CPT/HCPCS: 93242

== ENCOUNTER → 2023-11-07 14:50 | Outpatient (BNV) | payer OTHER, SELFPAY | PROVIDERS: Visit Provider Internal Medicine | DX: I49.3 Ventricular premature depolarization (principal) | CPT/HCPCS: 93244 ==

== ENCOUNTER 2023-11-28 08:13 | Outpatient (AMB) | payer OTHER, SELFPAY ==
[2023-11-28 08:17] VITALS: BP 114/62; PULSE 80; BMI 24.7
--- NOTE | 2023-11-28 08:17 | A.OFFVIS_ITS ---
Vital Signs 11/28/23 08:17 Height 4 ft 8 in Weight 110 lb 3.698 oz BMI 24.7 BP 114/62 Blood Pressure Location Rt brachial Position Sitting Pulse 80 Pulse Source Pulse Oximeter Intake Visit Reasons: follow-up [facility] ed for tia Allergies Keflex Allergy (Mild, Uncoded 11/28/23 08:19) Swelling in throat PCN Allergy (Mild, Uncoded 11/28/23 08:19) Itches and Rash Medication List - Last Reconciled 11/28/23 by SHAKIR Damon albuterol sulfate 90 mcg/actuation 2 puffs inhalation Q6H PRN 30 days amlodipine 10 mg PO DAILY aspirin 81 mg PO DAILY atorvastatin 80 mg PO DAILY [id number] 160-9-4.8 mcg/actuation (Breztri Aerosphere) 2 inhalations PO BID cholecalciferol (vitamin D3) 25 mcg PO DAILY ipratropium-albuterol 0.5 mg-3 mg(2.5 mg base)/3 mL 3 mL inhalation Q6H PRN nebulizers As directed nicotine (Nicoderm CQ) 1 patch transdermal DAILY 28 days sertraline 50 mg PO DAILY HPI HPI follow-up [facility] for tia: Details: Anastasia is a 63-year-old female with past medical history of smoking, obstructive sleep apnea, asthma, lung CA status post lobectomy who had been seen in the emergency room for an episode of visual disturbance, lightheadedness and palpitations. She was found to have hypotension and mildly elevated but flat troponins. She ruled out for PE an echo was normal. She was seen by Dr. Marcelo in consultation. An outpatient stress, Holter and lower extremity arterial ultrasound was ordered. She was then seen in the [facility] ER for report of facial numbness, visual disturbance and left foot tripping. A CT scan was suggestive of acute stroke however MRI confirmed no stroke. Today she reports that she has been doing generally well since her last ER visit. She will notice occasional heart palpitations. At times this can feel like a skip in her heartbeat and other times like a flutter. No sustained rapid or irregular rates. No recurrent issues with facial numbness. No mobility or speech disturbances. No recurrent visual disturbances. No chest discomfort at rest or with activity. No shortness of breath, presyncope, syncope, falls. Taking all meds as directed. Daughter is present. [facility] Medical History Palpitation Elevated troponin Lung cancer Pulmonary nodule Bronchopneumonia Tobacco dependence Pneumonitis Pulmonary nodules COPD (chronic obstructive pulmonary disease) Family History Other Testicular cancer Social History Patient Tobacco Use Status: Former Tobacco user Tobacco use type: Cigarette Years Smoked: 40+ years Review of Systems Const All systems reviewed & are unremarkable except as noted in HPI and below ENT Reports dizziness Card Details: palpitations Denies chest pain, Denies chest pain at rest, Denies chest pain with activity, Denies rapid heart rate, Denies pedal edema, Denies edema, Denies leg edema, Denies lightheadedness, Denies palpitations, Denies dyspnea, Denies dyspnea on exertion and Denies orthopnea Resp Denies cough, Denies dyspnea and Denies dyspnea on exertion GI Denies hematochezia and Denies change in stool character Musc Denies abnormal gait, Denies limited range of motion, Denies muscle cramps, Denies muscle weakness, Denies numbness, Denies radiating pain into limb, Denies stiffness and Denies tingling Neuro Denies abnormal gait, Reports dizziness, Denies numbness and Denies tingling Endo Denies palpitations Physical Exam Vital Signs: Last Vital Signs Pulse 80 11/28/23 08:17 BP 114/62 11/28/23 08:17 BMI result Body Mass Index 24.7 Const General: cooperative, healthy appearing, comfortable and no acute distress Orientation/consciousness: patient oriented x3 Neck Neck: Yes normal visual inspection Resp Effort & Inspection: normal respiratory effort Auscultation: clear to auscultation bilaterally, no crackles, no rales, no rhonchi and no wheezes Cardio Jugular venous distension: no JVD Rate: regular rate Rhythm: regular rhythm Heart sounds: S1 normal heart sound present, S2 normal heart sound present, no murmurs and no rubs Neuro General: patient oriented x3 Extrem General: Yes normal to inspection, No no pedal edema and No calf tenderness Psych Appearance: grossly normal Mental Status: mental status grossly normal Speech and movement: Normal speech and movement present Quality Reporting (2019) Adult ([facility] 138/08/10/68) Smoking risk assessment performed?: Yes Patient Tobacco Use Status: Former Tobacco user Assessment & Plan Assessment & Plan (1) TIA (transient ischemic attack): Code(s): G45.9 - Transient cerebral ischemic attack, unspecified Category: Medical Plan: Recent [facility] ER evaluation for possible TIA. She has symptoms of facial numbness, visual disturbance and left foot dragging. A CT scan was suggestive of possible CVA however MRI showed no stroke. Her symptoms resolved. She was continued on daily aspirin. She has a known cerebral aneurysm and has seen the neurosurgeon. There is no plan for surgery or intervention at this time. She had also been in the emergency room a month prior to the last visit with blurred vision, lightheadedness and heart palpitations. She was noted to be hypotensive at that time. Echocardiogram was done showing normal EF and no regional wall motion abnormalities. Holter monitor done for 7 days on 11/07/2023 shows sinus rhythm with average heart rate 81, rare SVE and ve. A stress echocardiogram had been ordered to further evaluate her hypotension and this has not been completed as of yet. She has not had recurrent issues with hypotension. She has no anginal symptoms. She currently has no neurological deficits. With her reports of heart palpitations and concern for TIA will order a cardiac event monitor to further evaluate for possible paroxysmal atrial fibrillation. However complete stress test as ordered. Blood pressure currently well controlled, no med changes made. ER care if ever needed for concerning symptoms. Cardiology follow-up in 2-3 months, sooner if needed. (2) Palpitation: Code(s): R00.2 - Palpitations Category: Medical (3) Elevated troponin: Code(s): R79.89 - Other specified abnormal findings of blood chemistry Category: Medical Plan: Mild elevation during 1st ER evaluation, Flat with no trend. Stress echocardiogram ordered as above. Plan Time spent on chart review, documentation, interview assessment Orders: Orders ECG 30 day event monitor Today G45.9 - Transient cerebral ischemic attack, unspecified, R00.2 - Palpitations Coding Level of Care Code Est Pt Level 4 (68157) Diagnoses TIA (transient ischemic attack) G45.9 Palpitation R00.2 Elevated troponin R79.89 Time Spent (min) 28
== END 2023-11-28 09:17 | disposition home or self-care (01) ==
PROVIDERS: Visit Provider Nurse Practitioner Family
DX: G45.9 Transient cerebral ischemic attack, unspecified (principal); R00.2 Palpitations; R79.89 Other specified abnormal findings of blood chemistry
CPT/HCPCS: 99214

== ENCOUNTER → 2023-11-28 08:13 | Outpatient (BNVA) | payer OTHER, SELFPAY | PROVIDERS: Visit Provider Nurse Practitioner Family | DX: G45.9 Transient cerebral ischemic attack, unspecified (principal); R00.2 Palpitations; R79.89 Other specified abnormal findings of blood chemistry | CPT/HCPCS: 99212 ==

== ENCOUNTER 2023-12-19 10:30 | Outpatient (AMB) | payer OTHER, SELFPAY ==
--- NOTE | 2023-12-19 10:31 | A.OFFVIS_ITS ---
Intake Visit Reasons: HEPATOLOGY PHYSICIAN/ Davian ref/ PVD, unspecified Intake Note: Patient presents for PVD. Patient has occasional swelling and bilateral leg pain. No other symptoms. Patient had arterial on October. Allergies Keflex Allergy (Mild, Uncoded 11/28/23 08:19) Swelling in throat PCN Allergy (Mild, Uncoded 11/28/23 08:19) Itches and Rash HPI HPI HEPATOLOGY PHYSICIAN/ Davian ref/ PVD, unspecified: Details: Very pleasant 63-year-old female presents for vascular evaluation regarding peripheral vascular disease. She was referred by Cardiology for lower extremity pain. She was originally worked up by Cardiology for a mildly elevated troponin. Upon workup she reported some leg discomfort and obtained a noninvasive arterial testing she was subsequently referred to us. 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 She had no difficulty through the years. Proximally a year ago she was found to have a lung nodule and underwent a lobectomy by Dr. Koehler. At that time she quit smoking. Prior to that she was smoking about a half a pack per day and at the highest she was smoking nearly 2 packs per day. She is a nondiabetic. She does report some lower back pain issues inclusive of an L5 fracture. COUNTS INCLUDE 234 BEDS AT THE [facility] Medical History Palpitation Elevated troponin Lung cancer Pulmonary nodule Bronchopneumonia Tobacco dependence Pneumonitis Pulmonary nodules COPD (chronic obstructive pulmonary disease) Family History Other Testicular cancer Social History Patient Tobacco Use Status: Former Tobacco user Tobacco use type: Cigarette Years Smoked: 40+ years Review of Systems Const All systems reviewed & are unremarkable except as noted in HPI and below Reports no additional complaints ENT Reports Normal hearing present Card Denies chest pain, Denies chest pain at rest, Denies chest pain with activity and Denies pedal edema Resp Denies cough GI Denies abdominal pain Musc Denies abnormal gait, Denies muscle cramps and Denies radiating pain into limb Skin/Breast Denies skin ulcer and Denies wounds Neuro Reports Normal hearing present and Denies abnormal gait Psych Reports no additional complaints Physical Exam Const General: cooperative, healthy appearing and comfortable Orientation/consciousness: oriented to person, oriented to place and oriented to time HEENT Head: Yes normal to inspection Neck Neck: Yes normal visual inspection Carotids: no bruits Chest Chest palpation & inspection: normal inspection of the chest Resp Effort & Inspection: normal respiratory effort and able to speak in complete sentences Auscultation: clear to auscultation bilaterally, no crackles, no rales, no rhonchi and no wheezes Cardio Other: Palpable DP and PT pulses bilaterally Rate: regular rate Rhythm: regular rhythm Heart sounds: S1 normal heart sound present and S2 normal heart sound present Bruits: no carotid bruits Peripheral pulses: Peripheral pulses 2+ throughout GI Inspection: Yes normal to inspection Skin Wounds: no wounds Hair: normal Neuro General: oriented to person, oriented to place and oriented to time Cranial nerves: Yes CN's II-XII intact bilaterally and Yes Normal hearing present Cognition (Neuro): normal cognition Motor exam (neuro): 5/5 motor strength present throughout Extrem Other: venous exam: No significant superficial varicosities or spider telangiectasias, minimal edema General: No clubbing, No cyanosis and No edema Psych Appearance: grossly normal Mental Status: mental status grossly normal Speech and movement: Normal speech and movement present Quality Reporting (2019) Adult ([facility] 138/08/10/68) Smoking risk assessment performed?: Yes Patient Tobacco Use Status: Former Tobacco user Results Reviewed Results Reviewed: Noninvasive arterial testing dated 11/07/2023 demonstrates multi phasic flow down bilateral lower extremities. Written report and images were reviewed. Assessment & Plan Assessment & Plan (1) PAD (peripheral artery disease): Code(s): I73.9 - Peripheral vascular disease, unspecified Category: Medical Plan: In short patient has lower extremity pain and discomfort. This may be more neurogenic in origin in particular due to her back issues as well. She denies any significant difficulty ambulating distances. In addition she does have palpable lower extremity arterial pulses. We did discuss signs and symptoms of claudication. I did congratulate her on quitting smoking nearly a year ago. She is being maintained on aspirin and high-dose statin. Should she develop claudication symptoms would be happy to see her back. She will follow up with us on an as-needed basis. Thank you for allowing us to assist in her care. If there are any questions or concerns please do not hesitate to contact us. Coding Level of Care Code New Pt Level 4 (64217) Diagnoses PAD (peripheral artery disease) I73.9
== END 2023-12-19 11:10 | disposition home or self-care (01) ==
PROVIDERS: PCP Nurse Practitioner Family; Visit Provider Surgery Vascular Surgery
DX: I73.9 Peripheral vascular disease, unspecified (principal)
CPT/HCPCS: 99203

== ENCOUNTER → 2023-12-19 10:30 | Outpatient (BNVA) | payer OTHER, SELFPAY | PROVIDERS: PCP Nurse Practitioner Family; Visit Provider Surgery Vascular Surgery | DX: I73.9 Peripheral vascular disease, unspecified (principal) | CPT/HCPCS: 99202 ==

== ENCOUNTER → 2024-02-06 14:08 | Outpatient (REF) | payer OTHER, SELFPAY ==
--- NOTE | 2024-02-06 14:11 | HM_ITS ---
Cardiac event monitor Indication: Transient ischemic attack Technique: Patient was hooked up to cardiac event monitor from 02/06/2024 to 03/07/2024 for total period of 30 days with a where time of only 17.3 days. Findings: Patient baseline was normal sinus rhythm with average heart of 75 beats per minute. No significant bradycardia or pauses or tachycardia or AV conduction abnormality noted. Rare PACs noted. Occasional PVCs noted with total burden of less than 1%. One brief episode of SVE run at 79 beats per minute. No sustained atrial fibrillation noted. Patient triggered 40 events. Thirty events had no associated symptoms but correlated with sinus rhythm. Five the events with symptoms although not specified correlated with sinus rhythm. Three events correlated with isolated PVCs. Conclusion: 1. Baseline was normal sinus rhythm without any pauses 2. Rare PACs and occasional PVCs without episodes of atrial fibrillation 3. Patient triggered significant number of events but without any associated arrhythmias most of them correlating with sinus rhythm. [facility]
== END ==
LOC: HO.CARD 14:08
PROVIDERS: PCP Internal Medicine; Visit Provider Nurse Practitioner Family
DX: R00.2 Palpitations (principal); G45.9 Transient cerebral ischemic attack, unspecified
CPT/HCPCS: 93270

== ENCOUNTER → 2024-02-06 14:11 | Outpatient (BNV) | payer OTHER, SELFPAY | PROVIDERS: PCP Internal Medicine; Visit Provider Internal Medicine Cardiovascular Disease | DX: I49.3 Ventricular premature depolarization (principal); I49.1 Atrial premature depolarization | CPT/HCPCS: 93272 ==

== ENCOUNTER 2024-04-09 11:18 | Outpatient (AMB) | payer OTHER, SELFPAY ==
--- NOTE | 2024-04-09 11:23 | MHC.OFFVIS ---
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 The patient has had multiple pulmonary nodules which appeared to be ground-glass the or subsolid in nature. Apparently manifesting more in the upper lung zones. Her last CT scan of the chest was done back in November of 2017 demonstrating stable nodular densities when compared to 2016. At this point the patient continues to smoke unfortunately. She is trying to cut down. At this she is high risk for malignancy. Has a significant family history of different cancers in the family. Therefore this point the patient is to be re-evaluated. In the meantime back in June she was diagnosed with the flu. She was given Tamiflu and also diagnosed with a COPD exacerbation. She was given prednisone and subsequently was also giving antibiotics have so she was not getting any better. She still having worsening cough productive in nature along with shortness of breath. 04/05/2023 the patient is here for pulmonary follow-up visit. The patient continues to do well after her surgery for her lung cancer. Stage I is did not need any adjuvant therapies. She does complaint of a cough which has been productive in nature since after surgery. Has not gotten any worse but just has not gotten any better either. Denies any fevers or chills. Denies any worsening shortness of breath. Will go ahead and treat her with doxycycline for potential smoldering infection. Unfortunately to the patient continues to smoke cigarettes. She is been struggling specially when she gets agitated. Will go ahead and prescribe her nicotine patches and also hopefully she can get the Nicotrol inhaler that she can use as breakthrough. She is following closely with thoracic surgery in her next CT scan be in June. If her cough is no better she can always call we can do a chest x-ray on earlier time. However, this point take as necessary. 10/10/2023 the patient is here for a pulmonary follow-up visit. Since we last spoke seems to be doing okay now. The patient did follow-up with thoracic surgery and did have a CT scan demonstrating no recurrence of her cancer. The patient continues use her inhalers on a regular basis and still needs her rescue medicine once or twice a day. She does get short of breath and chest tightness at times. She has no longer smoking which is reassuring. She did have an episode where she started developing left shoulder discomfort and palpitations and shortness of breath. EMS was called to the scene and the patient was taken to [facility] where she was evaluated. There she had a CTA. She ruled out for a pulmonary emboli. I did personally review her CT scan. She did have some postoperative changes. In addition to that had some ground-glass opacities of the right base. This suggests the possibility of inflammation versus infectious lower respiratory process. In addition to that the patient did have an echocardiogram which is reassuring. Her cardiac enzymes were indeed elevated. She was recommended to stay and have a stress test as an inpatient but the patient was reluctant and therefore she went home. Now she still complaining of some shortness breath. 04/09/2024 the patient is here for a pulmonary follow-up visit. Overall the patient is doing well. She did have a few bouts of issues with blood pressure where she was having labile blood pressure. There was also question of a stroke. She had gone to the ED twice. Both her [facility] [place]. At the last time the patient did have a CT with and without contrast of the brain. It demonstrated that she had an 8 mm cerebral artery aneurysm. She was evaluated by Neurosurgery at [facility] [place] and subsequently had a 2nd opinion at [facility] where it was recommended that she have an intervention. She is scheduled next month for intervention. However, she was also found to be significantly anemic. She received multiple courses of IV infusions of iron in now is being evaluated for an occult bleed. From a respiratory status the patient is doing well. She is getting his serial CT scans through [facility] after being diagnosed with stage I lung cancer. She also has other pulmonary nodules. As far as her smoking she is cutting down significantly. She still using the nicotine patch. She is almost done with her cigarettes. She understands she also developed a condition of respiratory bronchiolitis from smoking and therefore when she quit altogether it will improve her respiratory status. The patient is doing well on the current respiratory therapy so will continue therapy will follow-up in a year's time. If the patient develops capacity demonstrates it [facility] Medical History (Updated 04/09/24 @ 20:01 by Paulo Brunner MD) Iron deficiency anemia Cerebral aneurysm Palpitation Elevated troponin Lung cancer Pulmonary nodule Bronchopneumonia Tobacco dependence Pneumonitis Pulmonary nodules COPD (chronic obstructive pulmonary disease) Family History Other Testicular cancer Social History Patient Tobacco Use Status: Former Tobacco user Tobacco use type: Cigarette Years Smoked: 40+ years Review of Systems Const Reports difficulty sleeping and Denies night sweats Eyes Reports as per HPI ENT Denies change in voice, Denies lip swelling, Denies mouth pain, Reports nasal congestion, Reports nasal discharge and Denies tongue swelling Card Reports as per HPI, Denies chest pain, Reports palpitations and Reports dyspnea on exertion Resp Denies change in phlegm color, Denies chest congestion, Reports cough, Denies hemoptysis, Denies pain on inspiration, Denies pain with cough, Reports dyspnea on exertion and Denies wheezing GI Denies abdominal pain Musc Denies no additional complaints and Reports tingling Neuro Reports as per HPI, Denies Neuro-related abnormal movements, Reports tingling and Reports paresthesias Psych Denies no additional complaints Endo Reports palpitations Ubrano/Lymph Denies easy bleeding and Denies lymphadenopathy Aller/Immun Denies lip swelling, Denies tongue swelling and Denies wheezing Physical Exam Vital Signs: Last Vital Signs Pulse 65 04/09/24 11:24 BP 118/60 04/09/24 11:24 Pulse Ox 100 04/09/24 11:24 Oxygen Delivery Method Room Air 04/09/24 11:24 BMI result Body Mass Index 23.3 Const General: alert Neck Neck: Yes normal visual inspection, Yes full ROM and Yes no lymphadenopathy Chest Chest palpation & inspection: normal inspection of the chest Resp Auscultation: no crackles, no rhonchi, no wheezes and diminished lung sounds Cardio Rate: regular rate Rhythm: regular rhythm Heart sounds: S1 normal heart sound present and S2 normal heart sound present GI Palpation (GI): Soft to palpation and nontender Auscultation: normal bowel sounds General: Yes no CVA tenderness Back/Spine/Pelvis Back: no CVA tenderness Skin General skin exam: rashes and/or lesions noted Quality Reporting (2019) Adult ([facility] 13808/10/68) Smoking risk assessment performed?: Yes Patient Tobacco Use Status: Former Tobacco user Assessment & Plan Assessment & Plan (1) COPD (chronic obstructive pulmonary disease): Code(s): J44.9 - Chronic obstructive pulmonary disease, unspecified Category: Medical Qualifiers: COPD type: chronic bronchitis Chronic bronchitis type: mixed simple and mucopurulent Qualified Code(s): J41.8 - Mixed simple and mucopurulent chronic bronchitis (2) Lung cancer: Code(s): C34.90 - Malignant neoplasm of unspecified part of unspecified bronchus or lung Category: Medical Qualifiers: Laterality: right Lung location: upper lobe of lung Qualified Code(s): C34.11 - Malignant neoplasm of upper lobe, right bronchus or lung (3) YASMANI (obstructive sleep apnea): Code(s): G47.33 - Obstructive sleep apnea (adult) (pediatric) Category: Medical Plan CT chest per Thoracic surgery protocol continue Breztri Nebulizer with duoneb as needed tobacco cessation: patch/nicotrol inhaler Awaiting endovascular intervention for the cerebral aneurysm F/U 12 months Coding Level of Care Code Est Pt Level 4 (41864) Diagnoses Mixed simple and mucopurulent chronic bronchitis J41.8 COPD type: chronic bronchitis Chronic bronchitis type: mixed simple and mucopurulent Malignant neoplasm of upper lobe of right lung C34.11 Laterality: right Lung location: upper lobe of lung YASMANI (obstructive sleep apnea) G47.33 Time Spent (min) 17
[2024-04-09 11:24] VITALS: BP 118/60; PULSE 65; O2SAT 100; BMI 23.3
== END 2024-04-09 11:45 | disposition home or self-care (01) ==
PROVIDERS: PCP Nurse Practitioner Family; Visit Provider Hospitalist
DX: J41.8 Mixed simple and mucopurulent chronic bronchitis (principal); C34.11 Malignant neoplasm of upper lobe, right bronchus or lung; G47.33 Obstructive sleep apnea (adult) (pediatric)
CPT/HCPCS: 99214

== ENCOUNTER → 2024-04-09 11:18 | Outpatient (BNVA) | payer OTHER, SELFPAY | PROVIDERS: PCP Nurse Practitioner Family; Visit Provider Hospitalist | DX: J41.8 Mixed simple and mucopurulent chronic bronchitis (principal); C34.11 Malignant neoplasm of upper lobe, right bronchus or lung; G47.33 Obstructive sleep apnea (adult) (pediatric) | CPT/HCPCS: 99212 ==

== ENCOUNTER 2024-10-01 15:52 | Outpatient (AMB) | payer OTHER, SELFPAY ==
--- NOTE | 2024-10-01 15:52 | A.OFFVIS_ITS ---
Vital Signs 10/01/24 15:54 Height 4 ft 8 in Weight 109 lb 2.061 oz BMI 24.5 BP 110/54 L Blood Pressure Location Lt brachial Position Sitting Pulse 73 Pulse Source Pulse Oximeter Pulse Oximetry (%) 98 Oxygen Delivery Method Room Air Intake Visit Reasons: Cough times 10 days Allergies Keflex Allergy (Mild, Uncoded 04/09/24 11:27) Swelling in throat PCN Allergy (Mild, Uncoded 04/09/24 11:27) Itches and Rash HPI Comments Details: The patient is a 64-year-old woman with a known history of asthma COPD overlap syndrome, mold allergies in pulmonary nodules. The patient has had multiple pulmonary nodules which appeared to be ground-glass the or subsolid in nature. Apparently manifesting more in the upper lung zones. Her last CT scan of the chest was done back in November of 2017 demonstrating stable nodular densities when compared to 2016. At this point the patient continues to smoke unfortunately. She is trying to cut down. At this she is high risk for malignancy. Has a significant family history of different cancers in the family. Therefore this point the patient is to be re-evaluated. In the meantime back in June she was diagnosed with the flu. She was given Tamiflu and also diagnosed with a COPD exacerbation. She was given prednisone and subsequently was also giving antibiotics have so she was not getting any better. She still having worsening cough productive in nature along with shortness of breath. 04/05/2023 the patient is here for pulmonary follow-up visit. The patient continues to do well after her surgery for her lung cancer. Stage I is did not need any adjuvant therapies. She does complaint of a cough which has been productive in nature since after surgery. Has not gotten any worse but just has not gotten any better either. Denies any fevers or chills. Denies any worsening shortness of breath. Will go ahead and treat her with doxycycline for potential smoldering infection. Unfortunately to the patient continues to smoke cigarettes. She is been struggling specially when she gets agitated. Will go ahead and prescribe her nicotine patches and also hopefully she can get the Nicotrol inhaler that she can use as breakthrough. She is following closely with thoracic surgery in her next CT scan be in June. If her cough is no better she can always call we can do a chest x-ray on earlier time. However, this point take as necessary. 10/10/2023 the patient is here for a pulmonary follow-up visit. Since we last spoke seems to be doing okay now. The patient did follow-up with thoracic surgery and did have a CT scan demonstrating no recurrence of her cancer. The patient continues use her inhalers on a regular basis and still needs her rescue medicine once or twice a day. She does get short of breath and chest tightness at times. She has no longer smoking which is reassuring. She did have an episode where she started developing left shoulder discomfort and palpitations and shortness of breath. EMS was called to the scene and the patient was taken to [facility] where she was evaluated. There she had a CTA. She ruled out for a pulmonary emboli. I did personally review her CT scan. She did have some postoperative changes. In addition to that had some ground-glass opacities of the right base. This suggests the possibility of inflammation versus infectious lower respiratory process. In addition to that the patient did have an echocardiogram which is reassuring. Her cardiac enzymes were indeed elevated. She was recommended to stay and have a stress test as an inpatient but the patient was reluctant and therefore she went home. Now she still complaining of some shortness breath. 04/09/2024 the patient is here for a pulmonary follow-up visit. Overall the patient is doing well. She did have a few bouts of issues with blood pressure where she was having labile blood pressure. There was also question of a stroke. She had gone to the ED twice. Both her [facility]. At the last time the patient did have a CT with and without contrast of the brain. It demonstrated that she had an 8 mm cerebral artery aneurysm. She was evaluated by Neurosurgery at [facility] and subsequently had a 2nd opinion at [facility] where it was recommended that she have an intervention. She is scheduled next month for intervention. However, she was also found to be significantly anemic. She received multiple courses of IV infusions of iron in now is being evaluated for an occult bleed. From a respiratory status the patient is doing well. She is getting his serial CT scans through [facility] after being diagnosed with stage I lung cancer. She also has other pulmonary nodules. As far as her smoking she is cutting down significantly. She still using the nicotine patch. She is almost done with her cigarettes. She understands she also developed a condition of respiratory bronchiolitis from smoking and therefore when she quit altogether it will improve her respiratory status. The patient is doing well on the current respiratory therapy so will continue therapy will follow-up in a year's time. If the patient develops capacity demonstrates it. 10/01/2024 the patient is here for sick visit. She has been sick for a couple weeks. Started developing worsening cough has congestion. Positive sick contac ts as she was in a wedding and also had been on phenobarb before that. Other family members have been sick. She started that developing significant rattling of the chest and wheezing chest tightness. She has a hard time sleeping. Denies any more fevers although she still has some chills have off at times. Nobody really got tested for any viral syndromes. So we not sure although likely doubt is more like a postviral bacterial infection. Her cough sounds more like tracheitis. Therefore started on some azithromycin for now and also start him on some prednisone. The patient does off medication. She is going to home by the end of the week to make sure she is making progress. If she is not doing any better we can adjusting medication regimen at that point. She will follow-up in December she has an issues prior to that she will call for an earlier assessment. Also to note she has a CT scan of the chest scheduled soon. Will make a note to her to make sure that she is feeling better before getting that CAT scan. LB done at [facility]. [facility] Medical History (Updated 10/01/24 @ 23:22 by Paulo Brunner MD) Iron deficiency anemia Cerebral aneurysm Palpitation Elevated troponin Lung cancer Pulmonary nodule Bronchopneumonia Tobacco dependence Pneumonitis Pulmonary nodules COPD (chronic obstructive pulmonary disease) Family History Other Testicular cancer Social History (Updated 10/01/24 @ 16:00 by Olivia Jeter CMA) Alcohol intake: current Alcohol intake frequency: holidays/special occasions only Patient Tobacco Use Status: Former Tobacco user Tobacco use type: Cigarette Years Smoked: 40+ years Review of Systems Const Reports chills, Reports fatigue, Denies fever(s), Denies weight gain and Denies weight loss Eyes Reports as per HPI ENT Denies dizziness, Denies lip swelling and Denies tongue swelling Card Denies chest pain, Denies leg edema, Denies lightheadedness, Denies palpitations, Reports dyspnea on exertion, Denies orthopnea and Denies other Resp Reports chest congestion, Reports cough, Denies hemoptysis, Reports dyspnea on exertion and Reports wheezing GI Denies hematochezia and Denies change in stool character Musc Denies abnormal gait, Denies muscle weakness, Denies numbness, Denies radiating pain into limb and Denies tingling Neuro Denies abnormal gait, Denies dizziness, Denies numbness and Denies tingling Psych Denies no additional complaints Endo Reports fatigue and Denies palpitations Urbano/Lymph Denies easy bleeding and Denies lymphadenopathy Aller/Immun Denies lip swelling, Denies tongue swelling and Reports wheezing Physical Exam Vital Signs: Last Vital Signs Pulse 73 10/01/24 15:54 BP 110/54 L 10/01/24 15:54 Pulse Ox 98 10/01/24 15:54 Oxygen Delivery Method Room Air 10/01/24 15:54 BMI result Body Mass Index 24.5 Const General: alert Neck Neck: Yes normal visual inspection, Yes full ROM and Yes no lymphadenopathy Chest Chest palpation & inspection: normal inspection of the chest Resp Effort & Inspection: Actively coughing Quality: whooping Auscultation: no crackles, rhonchi, wheezes and diminished lung sounds Cardio Rate: regular rate Rhythm: regular rhythm Heart sounds: S1 normal heart sound present and S2 normal heart sound present GI Palpation (GI): Soft to palpation and nontender Auscultation: normal bowel sounds General: Yes no CVA tenderness Back/Spine/Pelvis Back: no CVA tenderness Skin General skin exam: rashes and/or lesions noted Assessment & Plan Assessment & Plan (1) COPD (chronic obstructive pulmonary disease): Code(s): J44.9 - Chronic obstructive pulmonary disease, unspecified Category: Medical Qualifiers: COPD type: COPD with acute exacerbation Qualified Code(s): J44.1 - Chronic obstructive pulmonary disease with (acute) exacerbation (2) Lung cancer: Code(s): C34.90 - Malignant neoplasm of unspecified part of unspecified bronchus or lung Category: Medical Qualifiers: Laterality: right Lung location: upper lobe of lung Qualified Code(s): C34.11 - Malignant neoplasm of upper lobe, right bronchus or lung (3) YASMANI (obstructive sleep apnea): Code(s): G47.33 - Obstructive sleep apnea (adult) (pediatric) Category: Medical (4) Tracheobronchitis: Code(s): J40 - Bronchitis, not specified as acute or chronic Category: Medical Plan start Zpack start Prednsone start cough medicine CT chest per Thoracic surgery protocol, once better continue Breztri Nebulizer with duoneb as needed endovascular intervention for the cerebral aneurysm F/U 4 months Medications: New prednisone PO daily; Take 2 tabs daily x 5 days, then 1 tablet daily x 5 days 15 tabs 0RF 10 days azithromycin 500 mg PO DAILY 5 tabs 0RF 5 days codeine-guaifenesin 10-100 mg/5 mL 10 mL PO Q6H PRN 300 mL 0RF cough 10 days Refilled ipratropium-albuterol 0.5 mg-3 mg(2.5 mg base)/3 mL 3 mL inhalation Q6H PRN 180 mL 6RF for wheezing J41.0 - Simple chronic bronchitis Coding Level of Care Code Est Pt Level 4 (64918) Diagnoses Chronic obstructive pulmonary disease with acute exacerbation J44.1 COPD type: COPD with acute exacerbation Malignant neoplasm of upper lobe of right lung C34.11 Laterality: right Lung location: upper lobe of lung YASMANI (obstructive sleep apnea) G47.33 Tracheobronchitis J40 Time Spent (min) 16
[2024-10-01 15:54] VITALS: BP 110/54; PULSE 73; O2SAT 98; BMI 24.5
--- OUTSIDE RECORDS SUMMARY | 2024-10-01 18:48 | XMS_ITS | Encounter Summary ---
Author Organization [facility] Address [address] [place] [address] Care Team Providers Care Composition Weatherboard Applier Name Role Phone Ash Hinton MD Primary Care Provider [phone] Encounter Details Date Type Department Care Team (Late st Contact Info) Description 09/25/2024 Telephone Gastroenterology - 299 [address] [place] [phone] Zoila Lewis MD [address] [address] Social History Tobacco Use Types Packs/Day Years Used Date Smoking Tobacco: Some Days Cigarettes Last attempted to quit: 12/27/2022 Smokeless Tobacco: Never Alcohol Use Standard Drinks/Week Comments Yes 0 (1 standard drink = 0.6 oz pur e alcohol) Comments No Sex and Gender Information Value Date Recorded Sex Assigned at Female 08/02/2024 2:36 PM EST Legal Sex Female 8:51 PM EST Gender Identity Female 08/02/2024 2:36 PM EST Sexual Orientation Straight 08/02/2024 2: 36 PM EST documented as of this encounter Progress Notes * Jesika Mcdonnell - 09/27/2024 9:29 AM EDT Call from [facility] stating that theres missing info on both sides, they really want to speak with Dr. Lewis, please advise * Nery Bejarano MA - 09/27/2024 8:54 AM EDT SPOKE WITH DONIS BOLANOS. LET HER KNOW THAT WE DID AN EGD IN 03/2024 WITH NO ULCERS AND UNLESS SHE HAS ANYTHING SINCE SHE CAN START PLAVIX. * Phuong Llanes - 09/25/2024 3:22 PM EDT HX OF INTERCRANIAL STENT FOR ANEURISM TX REQ ASPIRIN AND PLAVIX FOR 6 MO. STOPPED PLAVIX RESULT OF ULCERS AND UPPER GI BLEED. LOOKING FOR CLEARANCE TO RESTART PLAVIX. ARE THERE ANY TESTS THAT CAN BE PREFORMED TO CLEARANCE TO RESTART PLAVIX? KEAGAN SAID SOONEST APPT FOR [facility] MAY --HOPING TO GET CLEARANCE SOONER TO PREVENT STROKE RISK. documented in this encounter Plan of Treatment Upcoming Encounters Date Type Department Care Team (Late st Contact Info) Description 10/03/2024 7:30 AM EDT Clinical Support Gastroenterology - [address] [place] [phone] 10/10/2024 2:30 PM EDT Office Visit Thoracic Surgery - [address] [place] [phone] Babs Templeton PA 299 [facility], [address] [place] [address] documented as of this encounter Visit Diagnoses Not on filedocumented in this encounter Care Teams Composition Weatherboard Applier Relationship Specialty Start Date End Date Ash Hinton MD [address] [place] [address] [place] [address] PCP - General 04/17/24 documented as of this encounter
--- OUTSIDE RECORDS SUMMARY | 2024-10-01 18:48 | XMS_ITS | Encounter Summary ---
Author Organization [facility] [address] Address [address] [place] [address] Care Team Providers Care Heart Specialist Name Role Phone Ash Hinton MD Primary Care Provider [phone] Reason for Referral * Imaging (Routine) - Authorized Specialty Diagnoses / Procedures Referred By Contac t Referred To Contact Radiology Diagnoses History of lung cancer Procedures CT Chest wo Contrast Alea Ly NP [address] [address] Phone: tel: fax: [facility] Referral ID Status Reason Start Date Expiration Date V isits Requested Visits Authorized [id number] Authorized 08/22/2024 10/21/2024 1 1 Reason for Visit * Imaging (Routine) - Authorized Specialty Diagnoses / Procedures Referred By Contac t Referred To Contact Radiology Diagnoses History of lung cancer Procedures CT Chest wo Contrast Alea Ly NP [address] [address] Phone: tel: fax: [facility] Referral ID Status Reason Start Date Expiration Date V isits Requested Visits Authorized [id number] Authorized 08/22/2024 10/21/2024 1 1 Encounter Details Date Type Department Care Team (Latest Contact Info) Description 09/30/2024 2:20 PM EDT - 09/30/2024 11:59 PM EDT Hospital Encounter [facility] CT Scan [address] [place] [address] History of lung cancer Discharge Disposition: Home or Self Care Social History Tobacco Use Types Packs/Day Years [...] PM EST documented as of this encounter Medications at Time of Discharge amLODIPine (NORVASC) 10 mg tablet Take 1 tablet (10 mg total) by mouth 1 (one) time each day. atorvastatin (LIPITOR) 80 mg tablet Take 1 tablet (80 mg total) by mouth daily. 11/16/2023 budesonide/glycop yr/formoterol (BREZTRI AEROSPHERE INHL) INHALE 2 PUFFS TWICE A DAY 12/03/2021 nicotine (NICODERM CQ) 21 mg/24 hr - Route: Place 1 Patch onto the skin daily sertraline (ZOLOFT) 50 mg tablet Take 1 tablet (50 mg total) by mouth 1 (one) time each day. documented as of this encounter Discharge Disposition Disposition Code Departure Means Destination Home or Self Care documented in this encounter Plan of Treatment Upcoming Encounters Date Type Department Care Team ([facility] st Contact Info) Description 10/03/2024 7:30 AM EDT Clinical Support Gastroenterology - [address] [place] [phone] 10/10/2024 2:30 PM EDT Office Visit Thoracic Surgery - [address] [place] [phone] Babs Templeton PA 299 [facility], [address] [place] [address] Pending Results Name Type Priority Associated Diagnoses Date /Time CT Chest wo Contrast Imaging Routine History of lung cancer 09/30/2024 2:29 PM EDT Scheduled Orders Name Type Priority Associated Diagnoses Orde r Schedule CT Chest wo Contrast Imaging Routine History of lung cancer Once for 1 Occurrences starting 09/30/2024 until 09/30/2024 documented as of this encounter Visit Diagnoses Diagnosis History of lung cancer Personal history of malignant neoplasm of bronchus and lung documented in this encounter Care Teams Heart Specialist Relationship Specialty Start Date End Date Ash Hinton MD [address] [place] [address] PCP - General 04/17/24 documented as of this encounter
--- OUTSIDE RECORDS SUMMARY | 2024-10-01 18:48 | XMS_ITS | Continuity of Care Document ---
Author Organization [facility] Address [address] [place] [phone]- Care Team Providers Care Medical Secretary Teacher Name Role Phone Ondina BAZAN, Praveena Orozco Primary Care Physician ( [phone] Encounter [facility] Date(s): 08/26/24 - 09/25/24 [facility] Oncology [address] [place] [phone]- Encounter Type: Triage Allergies, Adverse Reactions, Alerts Substance Criticality Severity Reaction Reaction Severity Status penicillins Active Keflex Active Other Food Allergy 1, 2 Active 1Sunflower seeds 2Walnuts Immunizations Given and Recorded Vaccine Date Status Refusal Reason RSV vaccine preF3, recombinant 04/28/23 Recorded influenza virus vaccine, inactivated 04/28/23 Harinder rded influenza virus vaccine, inactivated 05/05/22 Harinder rded influenza virus vaccine, inactivated 03/16/21 Harinder rded SARS-CoV-2(COVID-19)mRNA-LNP vac([id number]) 04/28/23 Recorded [id number] bivalent booster vax 04/27/22 Recorded pneumococcal 23-valent vaccine 10/06/21 Given SARS-CoV-2 (COVID-19) mRNA-1273 vaccine 04/18/21 R ecorded SARS-CoV-2 (COVID-19) mRNA-1273 vaccine 09/10/20 R ecorded SARS-CoV-2 (COVID-19) mRNA-1273 vaccine 08/13/20 R ecorded tetanus/diphtheria/pertussis, acel(Tdap) 11/06/18 Given Medications albuterol-ipratropium 3 mg-0.5 mg/3 ml inhalation solution 3 mL, Inhalation, 3 times a day, PRN Wheezing/Shortness of Breath, prescribed by pulmonary, # 360 each, 0 Refills, Maintenance, 10/18/23 3:52:00 PM EDT, Solution, Partial fill upon patient request if the prescription is for a schedule II opioid drug. Start Date: 10/18/23 Status: Ordered Quantity: 360.0 Unit: each Repeat number: 1 amLODIPine 10 mg oral tablet 10 mg, 1, tablet, By Mouth, Daily, # 90 tablet, Refills 1, Tot. Refills 1, Maintenance, 06/12/24 2:28:00 PM EST, Route to Pharmacy Electronically, [facility]/pharmacy #[id number], Partial fill upon patient request if the prescription is for a schedule II opioid drug., 138.2, cm, 04/03/24 11:30:00 EDT, Height, 47.6, kg, 02/05/24 13:13:00 EDT, Dry Weight Start Date: 06/12/24 Stop Date: 12/09/24 Status: Ordered Quantity: 90.0 Unit: tablet Repeat number: 2 aspirin 325 mg oral tablet 325 mg, 1, tablet, By Mouth, Daily, # 30 tablet, Refills 0, Maintenance, 08/29/24 11:02:00 AM EDT, Partial fill upon patient request if the prescription is for a schedule II opioid drug. Start Date: 08/29/24 Status: Ordered Quantity: 30.0 Unit: tablet Repeat number: 1 atorvastatin 80 mg oral tablet 1 tablet = 80 mg, By Mouth, Daily, # 90 tablet, 1 Refills, Maintenance, 04/30/24 3:42:00 PM EST, Tablet, [facility] #[id number], Partial fill upon patient request if the prescription is for a schedule II opioid drug., 138.2, cm, 04/03/24 11:30:00 EDT, Height, 47.6, kg, 02/05/24 13:13:00 EDT, Dry Weight Start Date: 04/30/24 Status: Ordered Quantity: 90.0 Unit: tablet Repeat number: 2 Breztri Aerosphere inhalation aerosol 2 puffs, Inhalation, 2 times a day, rinse mouth and throat after use, # 5.9 Gm, 0 Refills, Maintenance, 12/03/21 9:08:00 PM EDT, Aerosol, Partial fill upon patient request if the prescription is for aschedule II opioid drug. Start Date: 12/03/21 Status: Ordered Quantity: 5.9 Unit: g Repeat number: 1 folic acid 0.4 mg oral tablet 1 tablet = 0.4 mg, By Mouth, Daily, # 100 tablet, 1 Refills, Maintenance, 09/02/24 10:18:00 AM EDT, Tablet, [facility]/pharmacy #[id number], Partial fill upon patient request if the prescription is for a schedule II opioid drug., 143, cm, 08/29/24 10:53:00 EDT, Height, 49.4, kg, 08/19/24 9:12:00 EST, Dry Weight Start Date: 09/02/24 Status: Ordered Quantity: 100.0 Unit: tablet Repeat number: 2 nicotine 21 mg/24 hr transdermal film, extended release 1 patch, Topically, Daily, # 28 patch, 1 Refills, Maintenance, 09/10/24 2:48:00 PM EDT, [id number], 28, APPLY 1 PATCH TOPICALLY DAILY, 137.5, cm, 09/03/24 11:30:00 EDT, Height, 49.4, kg, :12:00 EST, Dry Weight Start Date: 09/10/24 Status: Ordered Quantity: 28.0 Unit: patch Repeat number: 1 pantoprazole 40 mg oral delayed release tablet 1 tablet = 40 mg, By Mouth, 2 times a day, # 180 tablet, 3 Refills, Maintenance, 09/16/24 4:05:00 PMEDT, CR Tablet, 137.5, cm, 09/13/24 9:11:00 EDT, Height, 49.4, kg, 08/19/24 9:12:00 EST, Dry Weight Start Date: 09/16/24 Status: Ordered Quantity: 180.0 Unit: tablet Repeat number: 4 sertraline 50 mg oral tablet 1 tablet, By Mouth, Daily, # 90 tablet, 1 Refills, Maintenance, 04/07/24 9:17:00 AM EDT, [id number], 138.2, cm, 04/03/24 11:30:00 EDT, Height, 47.6, kg, 02/05/24 13:13:00 EDT, Dry Weight Start Date: 04/07/24 Status: Ordered Quantity: 90.0 Unit: tablet Repeat number: 1 Problem List Condition Confirmation Course Effective Dates Status Health St atus Informant Abnormal Pap smear of cervix Confirmed Active Acute blood loss anemia Confirmed Active Aneurysm of intracranial portion of right internal carotid artery 1 Confirmed Active Thrush Confirmed Active Polydipsia Confirmed Active Folic acid deficiency Confirmed Active Generalized anxiety disorder Confirmed Active HLD (hyperlipidemia) Confirmed Active Pulmonary nodule, right Confirmed Active Osteoporosis Confirmed Active Colon polyp 2 Confirmed Active Prediabetes Confirmed Active COPD with emphysema Confirmed Active Sore throat Confirmed Active Tobacco use Confirmed Active Duodenal ulcer Confirmed Active Upper GI bleed Confirmed Active 1pt update: t's Anastasia Og! I wanted to tell you that I had my surgery on Apr.[address] Fields. The whole team was so amazing! Very, very impressive. The surgery was a success using the stent! I threw a hematoma that night. Pressure and ice for a long time prevented a pseudo aneurysm. My follow up is on 05/06. I would highly recommend Dr. Fields. He and his staff are incredible.I wanted to let you know! 2colonoscopy in 12/08 - advised repeat in 11/2026 (5 years) Social History Social History Type Response Smoking Status 5-9 cigarettes (betw een 1/4 to 1/2 pack)/day in last 30 days entered on: 02/01/24 Sex Sex Representation Female (finding) Patient Care team information Care Team Personnel Name: Praveena Nj NP Position: [facility] PCO Associate Professional Member Role: PCP Address: [address] [place] [address] Telecom: Name: Irving Smith RN Position: [facility] RN Member Role: Primary Care Nurse Name: Delgado Reilly RN Position: [facility] RN Member Role: Primary Care Nurse Name: Ynes Nick RN Position: [facility] RN Member Role: Primary Care Nurse Name: Shannon Severino RN Position: [facility] DRE Nurse Member Role: Primary Care Nurse Care Team Related Persons Name: LEO MOELLER Name: SARAH OLIVAREZ Name: SHAHID REID Insurance Providers Guarantor name: [facility]IA [facility] Plan Information #: 1 Payer: [facility] Member Number: NA Policy Number: NA Group Number: NA"
--- OUTSIDE RECORDS SUMMARY | 2024-10-01 18:48 | XMS_ITS | Continuity of Care Document ---
Author Organization [facility] TAR WORKER Oncolog y Address [address] [place] [id number]- Care Team Providers Care Technology Sales Consultant Name Role Phone Ondina BAZAN, Praveena Orozco Primary Care Physician Encounter [facility] Date(s): 08/26/24 - 09/25/24 [facility] TAR WORKER Oncology [address] [place] [address]- Encounter Type: Triage Allergies, Adverse Reactions, Alerts [...] virus vaccine, inactivated 03/16/21 Harinder rded SARS-CoV-2(COVID-19)mRNA-LNP vac([id number]) 04/28/23 Recorded [id number] bivalent booster vax 04/27/22 Recorded pneumococcal 23-valent [...] 2:28:00 PM EST, Route to Pharmacy Electronically, [facility]/pharmacy #[id number], Partial fill upon patient request if the [...] Refills, Maintenance, 04/30/24 3:42:00 PM EST, Tablet, [facility] #[id number], Partial fill upon patient request if the [...] Refills, Maintenance, 09/02/24 10:18:00 AM EDT, Tablet, [facility]/pharmacy #[id number], Partial fill upon patient request if the prescription is for a schedule II opioid drug., 143, cm, 08/29/24 10:53:00 EDT, Height, 49.4, kg, 08/19/24 9:12:00 EST, Dry Weight Start Date: 09/02/24 Status: Ordered Quantity: 100.0 Unit: tablet Repeat number: 2 nicotine 21 mg/24 hr transdermal film, extended release 1 patch, Topically, Daily, # 28 patch, 1 Refills, Maintenance, 09/10/24 2:48:00 PM EDT, [id number], 28, APPLY 1 PATCH TOPICALLY DAILY, 137.5, [...] Maintenance, 04/07/24 9:17:00 AM EDT, [id number], 138.2, cm, 04/03/24 11:30:00 EDT, Height, 47.6, [...] Team Personnel Name: Praveena Nj NP Position: [facility] PCO Associate Professional Member Role: PCP Address: [address] [place] [address] Telecom: Name: Irving Smith RN Position: [facility] RN Member Role: Primary Care Nurse Name: Delgado Reilly RN Position: [facility] RN Member Role: Primary Care Nurse Name: Ynes Nick RN Position: [facility] RN Member Role: Primary Care Nurse Name: Shannon Severino RN Position: [facility] DRE Nurse Member Role: Primary Care Nurse Care Team Related Persons Name: LEO MOELLER Name: SARAH OLIVAREZ Name: SHAHID REID Insurance Providers Guarantor name: ANASTASIA [facility] Plan Information #: 1 Payer: [facility] Member Number: NA Policy Number: NA Group Number: NA
--- OUTSIDE RECORDS SUMMARY | 2024-10-01 18:48 | XMS_ITS | Encounter Summary ---
Author Organization [facility] Address [address] [place] [address] Care Team Providers Care Photocopying Equipment Repairer Name Role Phone Ash Hinton MD Primary Care Provider [phone] Encounter Details Date Type Department Care Team (Late st Contact Info) Description 09/27/2024 Telephone Gastroenterology - [address] [place] [phone] Nery Bejarano MA Social History Tobacco Use Types Packs/Day Years [...] as of this encounter Progress Notes * Nery Bejarano MA - 09/27/2024 2:31 PM EDT Spoke with Michael at [facility]/ she advised that pt needs a capsule done also. She booked with me over the phone and was going to call and confirm with patient. documented in this encounter Plan of Treatment Upcoming Encounters Date Type Department Care Team (Late st Contact Info) Description 10/03/2024 7:30 AM EDT Clinical Support Gastroenterology - [address] [facility] [address] [facility] [address] [place] [address] 10/10/2024 2:30 PM EDT Office Visit Thoracic Surgery - [place] [address] [facility] [address] [place] [address] Babs Templeton PA [address] [facility], [address] [place] [address] documented as of this encounter Visit Diagnoses Not on filedocumented in this encounter Care Teams Photocopying Equipment Repairer Relationship Specialty Start Date End Date Ash Hinton MD [address] [place] [address] [address] [place] [address] PCP - General 04/17/24 documented as of this encounter
--- OUTSIDE RECORDS SUMMARY | 2024-10-01 18:48 | XMS_ITS | Clinical Summary ---
Author Organization [facility] Address [address] [place] [address] Care Team Providers Care Vehicle Maintenance Technician Name Role Phone Bigg Ford DOUBLE HEAD MACHINE OPERATOR Primary Care Provider Source Comments PLEASE NOTE, if this patient is a minor, it may be UNLAWFUL to discuss sensitive information that is contained in these records (such as FAMILY PLANNING, MENTAL HEALTH or SUBSTANCE ABUSE) with the minor patient's parent or other person without the patient's specific authorization.[facility] Allergies Active Allergy Reactions Criticality Noted Date Comments Cephalexin 07/25/2017 Penicillins 07/25/2017 [place] Seeds 07/25/2017 Walnuts 07/25/2017 Medications PROAIR HFA 90 mcg/actuation inhaler Inhale 2 Puffs into the lungs every 4 (four) hours as needed for shortness of breath 6.7 g 3 8 Active mupirocin (BACTROBAN) 2 % ointment Apply topically 3 (three) times daily 22 g 8 Active Active Problems Problem Noted Date Diagnosed Date Flexor tenosynovitis of finger 01/05/2018 Overview (01/05/2018): Pt was diagnose with flexor tenosynovitis on her right finger , from [facility] Postmenopausal bleeding 12/25/2017 Trigger middle finger of right hand 12/25/2017 Overview (12/25/2017): Patient to be scheduled for surgery Abnormal ultrasound of breast left 10/30/2017 Overview (10/30/2017): [facility] US Breast uni limited lt 10/27/2017 Simple cyst left breast 4:00 position 3 cm from the nipple accounting for mammographic findings Hepatomegaly 10/11/2017 Chronic bilateral low back pain without sciatica 07/26/2017 Overview (09/28/2017): Referral to Ortho MRI obtained showed Spondylolisthesis L4-5 with associated moderate neural foraminal narrowing. Onychomycosis 04/22/2017 Neuropathy involving both lower extremities 02/18 Allergic rhinitis 12/04/2016 Asthma ([facility]) 12/04/2016 Hypersensitivity pneumonitis ([facility]) 7 Lung nodule 12/04/2016 Overview (12/28/2017): CT chest 11/21/17. Grossly stable multifocal small groundglass opacities throughout the lungs with upper lobe predominance. Resolved Problems Problem Noted Date Diagnosed Date Resolved Date Acromegaly ([facility]) 12/04/2016 018 Social History Tobacco Use Types Packs/Day Years Used Date Smoking Tobacco: Every Day Smokeless Tobacco: Never Alcohol Use Standard Drinks/Week Comments Yes 0 (1 standard drink = 0.6 oz pur e alcohol) one drink every night Social Connections Answer Date Recorded Social Connections and Isolation 0 02/11/2019 Financial Resource Strain Answer Date R ecorded Financial Resource Strain 0 2018 Stress Answer Date Recorded Stress 0 02/11/2019 Physical Activity Answer Date Recorded Physical Activity 0 02/11/2019 Food Insecurity Answer Date Recorded Food 0 02/11/2019 Transportation Needs Answer Date Record ed Transportation 0 02/11/2019 Housing Stability Answer Date Recorded Housing 0 02/11/2019 Safety and Environment Answer Date Harinder rded Safety 0 02/11/2019 Utilities Answer Date Recorded Utilities 0 02/11/2019 Employment Answer Date Recorded Employment 0 02/11/2019 Comments No Sex and Gender Information Value Date Recorded Sex Assigned at Female 07/25/2017 8:21 AM PST Legal Sex Female 12:15 PM PST Gender Identity Female 07/25/2017 8:21 AM PST Sexual Orientation Straight 07/25/2017 8: 21 AM PST Last Filed Vital Signs Vital Sign Reading Time Taken Comments Blood Pressure 118/74 06/06/2018 9:09 AM EST Pulse 82 06/06/2018 9:09 AM EST Temperature 36.8 ??C (98.2 ??F) 04/11/2018 4:40 PM ED T Respiratory Rate 16 06/06/2018 9:09 AM EST Oxygen Saturation - - Inhaled Oxygen Concentration - - Weight 42.2 kg (93 lb) 06/06/2018 9:09 AM EST Height 142.2 cm (4' 8 ) 06/06/2018 9:09 AM EST Body Mass Index 20.85 06/06/2018 9:09 AM EST Plan of Treatment Not on file Insurance [facility] Care Teams Vehicle Maintenance Technician Relationship Specialty Start Date End Date Bigg Ford NP [address] [place] [phone] PCP - General DOUBLE HEAD MACHINE OPERATOR Nurse Practitioner 08/03/18
--- OUTSIDE RECORDS SUMMARY | 2024-10-01 18:48 | XMS_ITS | Clinical Summary ---
Author Organization [facility] Address [address] [place] [address] Phone Care Team Providers Care Wet Process Miller Head Assistant Name Role Phone Ash Hinton MD Primary Care Provider [phone] Allergies Active Allergy Reactions Criticality Noted Date Comments Cephalexin Anaphylaxis High 12/04/2016 Throat tightness Nut - Unspecified 07/25/2017 walnuts Penicillins Anaphylaxis High 12/04/2016 Itchy everywhere within 20 minutes and chest tightness [place] Seed 07/25/2017 [place] seeds Medications amLODIPine (NORVASC) 10 mg tablet Take 1 tablet (10 mg total) by mouth 1 (one) time each day. Active atorvastatin (LIPITOR) 80 mg tablet Take 1 tablet (80 mg total) by mouth daily. 11/16/2023 Active nicotine (NICODERM CQ) 21 mg/24 hr - Route: Place 1 Patch onto the skin daily Active budesonide/glyco pyr/formoterol (BREZTRI AEROSPHERE INHL) INHALE 2 PUFFS TWICE A DAY 12/03/2021 Active sertraline (ZOLOFT) 50 mg tablet Take 1 tablet (50 mg total) by mouth 1 (one) time each day. 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 Og and believe some of her left-sided symptoms are from the foraminal stenosis at L4-5. She describes walking with a foot drop and on exam she could not walk on her left heel but, I did not observe the typical foot slapping and high steppage gait. I do not see anything acute on the MRI to explain the sudden occurrence of this starting in September but, I believe it is worth considering a left L4-5 foraminotomy. Unfortunately, she has significant other health concerns and is scheduled for a right lung biopsy with Dr. Chand on December 27. I will refer her for a left lower extremity EMG to help us differentiate from her radiculopathy and her history of neuropathy and then finalize a plan. External hemorrhoids 04/12/2019 LGSIL on Pap smear of cervix 04/12/2019 Overview (07/25/2024): 09/2017; HPV + Postmenopausal bleeding 12/25/2017 Trigger finger, right middle finger 12/25/2017 Overview (07/25/2024): Patient to be scheduled for surgery Patient to be scheduled for surgery Chronic bilateral low back pain without sciatica 07/26/2017 Overview (07/25/2024): Referral to Ortho MRI obtained showed Spondylolisthesis L4-5 with associated moderate neural foraminal narrowing. Referral to Ortho MRI obtained showed Spondylolisthesis L4-5 with associated moderate neural foraminal narrowing. Onychomycosis 04/22/2017 Neuropathy involving both lower extremities 02/18 Acromegaly (CMS/HCC V24, CMS/HCC V28) 12/04/2016 Allergic rhinitis 12/04/2016 Hypersensitivity pneumonitis (CMS/HCC V24, CMS/H CC V28) 12/04/2016 Asthma 12/04/2016 Lung nodule 12/04/2016 Overview (07/25/2024): CT chest 11/21/17. Grossly stable multifocal small groundglass opacities throughout the lungs with upper lobe predominance. Encounters Date Type Department Care Team Description 09/30/2024 2:20 PM EDT - 09/30/2024 11:59 PM EDT Hospital Encounter [facility] CT Scan [address] [place] [address] History of lung cancer Discharge Disposition: Home or Self Care 09/27/2024 Telephone Gastroenterology - [address] [place] [phone] Nery Bejarano MA 09/25/2024 Telephone Gastroenterology - [address] [place] [phone] Zoila Lewis MD 09/25/2024 Telephone Gastroenterology - [address] [place] [phone] Zoila Lewis MD 08/19/2024 Telephone Gastroenterology - [address] [place] [phone] Jessenia Monge [place] 08/12/2024 Telephone Gastroenterology - [address] [place] [phone] Zoila Lewis MD 08/02/2024 8:38 AM EST - 08/02/2024 11:59 PM EST Hospital Encounter [facility] Ultrasound [address] [place] [address] Breast mass, left Discharge Disposition: Home or Self Care 08/02/2024 7:29 AM EST - 08/02/2024 11:59 PM [facility] Hospital Encounter [facility] at [address] [phone] Breast mass, left Discharge Disposition: Home or Self Care 07/24/2024 10:15 AM EST - 07/24/2024 11:59 PM [facility] Hospital [facility] at [address] [place] [phone] Encounter for screening mammogram for breast cancer Discharge Disposition: Home or Self Care from Last 3 Months Surgical History Surgery Date Site/Laterality Comments SECTION PROCEDURE: HISTORICAL DELIVERY COLPOSCOPY 2017 PROCEDURE: AL COLPOSCOPY ENTIRE VAGINA W/VAGINA/CERVIX BX; COMMENT: negative HAND SURGERY 11/07/2018 Right PROCEDURE: HISTORICAL HAND SURGERY; COMMENT: mass STEREOTACTIC CORE BIOPSY Left Medical History Medical History Date Comments Lung nodule 12/04/2016 DX:Lung nodule Acromegaly (CMS/HCC V24, CMS/HCC V28) 12/04/2016 DX:Acromegaly (HCC) Asthma 12/04/2016 DX:Asthma Allergic rhinitis 12/04/2016 DX:Allergic rh initis Hypersensitivity pneumonitis (CMS/HCC V24, CMS/HCC V28) 12/04/2016 DX:Hypersensitivity pneumoni tis (HCC) Onychomycosis 04/22/2017 DX:Onychomycosis Neuropathy involving both lo wer extremities 03/15/2017 DX:Neuropathy involving both lower extremities Hepatomegaly 10/11/2017 DX:Hepatomegaly External hemorrhoids 04/12/2019 DX:External hemorrhoids Abnormal ultrasound of breast 10/30/2017 DX :Abnormal ultrasound of breast; COMMENT: Overview: [facility] US Breast uni limited lt 10/27/2017 Simple cyst left breast 4:00 position 3 cm from the nipple accounting for mammographic findings Chronic bilateral low back p ain without sciatica 07/26/2017 DX:Chronic bilateral low brett k pain without sciatica; COMMENT: Overview: Referral to Ortho MRI obtained showed Spondylolisthesis L4-5 with associated moderate neural foraminal narrowing. Trigger middle finger of right hand 12/25/2017 DX:Trigger middle finger of right hand; COMMENT: Overview: Patient to be scheduled for surgery LGSIL on Pap smear of cervix 04/12/2019 DX: LGSIL on Pap smear of cervix; COMMENT: 09/2017; HPV + Postmenopausal bleeding 04/12/2019 DX:Postm enopausal bleeding Family History Medical History Relation Name Comments Breast cancer Mother Breast cancer Mother's Sister Breast cancer Niece Relation Name Status Comments Mother Mother's Sister Alive Niece Alive Social History Tobacco Use Types Packs/Day Years [...] Orientation Straight 08/02/2024 2: 36 PM EST Obstetrics History Para Term AB IAB SAB Ectopic Multiple Livin g Live Births 2 Last Filed Vital Signs Vital Sign Reading Time Taken Comments Blood Pressure 103/69 03/28/2024 10:50 AM EDT Si tting L Arm Pulse 74 03/28/2024 10:50 AM EDT Temperature - - Respiratory Rate - - Oxygen Saturation - - Inhaled Oxygen Concentration - - Weight 47.2 kg (104 lb) 07/24/2024 10:54 AM EST Height 142.2 cm (4' 8 ) 07/24/2024 10:54 AM EST Body Mass Index 23.32 07/24/2024 10:54 AM EST Plan of Treatment Upcoming Encounters Date Type Department Care Team ([facility] st Contact Info) Description 10/03/2024 7:30 AM EDT Clinical Support Gastroenterology - [address] [place] [address] [address] [place] [address] 10/10/2024 2:30 PM EDT Office Visit Thoracic Surgery - [address] [place] [address] Babs Templeton PA [address] [place] [address], [address] [place] [address] Health Maintenance Due Date Last Done Comments Hepatitis A Vaccines (1 of 2 - Risk 2-dose series) 1979 Cervical Cancer Screening: Pap Smear 1981 Zoster Vaccines (1 of 2) 2010 Hepatitis B Vaccines (1 of 3 - Risk 3-dose series) 2020 Cholesterol Screening (Lipid Panel) 05/21/2022 Colorectal Cancer Screening: Colonoscopy 05/21/2022 Depression Screening 05/21/2022 HIV Screening 05/21/2022 Hepatitis C Screening 05/21/2022 Osteoporosis Screening (Bone Density Screening) 05/21/2022 Social Influencers of Health Screening 05/21/2022 Pneumococcal Vaccine: 50+ Years (2 of 2 - PCV) 10/06/2022 10/06/2021 Pneumococcal Vaccine: Pediatrics (0 to 5 Years) and At-Risk Patients (6 to 64 Years) (2 of 2 - PCV) 10/06/2022 10/06/2021 COVID-19 Vaccine ( season) 2024 04/28/2023, 04/27/2022, 04/18/2021, Additional history exists Influenza Vaccine (Season Ended) 2025 04/28/2023, 05/05/2022, 03/16/2021 Breast Cancer Screening 08/02/2026 08/02/19, 07/24/2024, 07/03/2023, Additional history exists DTaP,Tdap,and Td Vaccines (2 - Td or Tdap) 11/06/2028 11/06/2018 RSV Immunization Adult Patients Completed 04/28/2023 HIB Vaccines Aged Out No longer eligi ble based on patient's age to complete this topic HPV Vaccines Aged Out No longer eligi ble based on patient's age to complete this topic IPV Vaccines Aged Out No longer eligi ble based on patient's age to complete this topic MMR Vaccines Aged Out No longer eligi ble based on patient's age to complete this topic Meningococcal ACWY Vaccine Aged Out N o longer eligible based on patient's age to complete this topic Meningococcal B Vaccine Aged Out No l onger eligible based on patient's age to complete this topic RSV Immunization Patients Under 20 months Aged Out No longer eligible based on patient's age to complete this topic Varicella Vaccines Aged Out No longer eligible based on patient's age to complete this topic Procedures Procedure Name Priority Date/Time Associated Diagnosis Comments EXTERNAL ENDOSCOPY REPORT Routine 08/14/2024 2:45 PM EST MG MAMMO DIAGNOSTIC ADDL VIEWS LEFT Routine 08/02/2024 9:06 AM EST Breast mass, left US BREAST LIMITED LEFT Routine 08/02/2024 8:55 AM EST Breast mass, left MG MAMMO DIGITAL SCREENING W ARUN BILAT Routine 07/24/2024 11:02 AM EST Encounter for screening mammogram for breast cancer from Last 3 Months Results * External Endoscopy (08/14/2024 2:45 PM EST) Anatomical Region Laterality Modality Endoscopy us Historical Provider MD HOWELL~PROCEDURE ORDERABLES F inal Result * MG Mammo Diagnostic Addl Views Left (08/02/2024 9:06 AM EST) Anatomical Region Laterality Modality Breast Left Mammography 08/02/2024 8:28 AM EST Impressions 08/02/2024 8:55 AM EST No mammographic or ultrasound evidence of malignancy. ??Benign cystic area with mammographic and ultrasound correlation. BI-RADS: ??Category 2: Benign RECOMMENDATION(S): Routine screening mammogram BILATERAL in 1 year. -------- FINAL REPORT -------- Dictated By: IMMANUEL FANG Dictated Date: 08/02/2024 08:28 ET Assigned Physician: IMMANUEL FANG Reviewed and Electronically Signed By: IMMANUEL FANG Signed Date: 08/02/2024 08:55 ET Workstation ID: [id number] Transcribed By: Self Edit Transcribed Date: 08/02/2024 08:44 ET Narrative 08/02/2024 8:55 AM EST EXAM: MG MAMMO DIAGNOSTIC ADDL VIEWS LEFT, US BREAST LIMITED LEFT [id number] EXAM DATE AND TIME: 08/02/2024 7:30 AM HISTORY: Additional views requested for mass in the left lower outer breast. COMPARISON: 07/24/2024 TECHNIQUE: Unilateral left digital breast tomosynthesis was performed in the CC and MLO projections as well as a full field true lateral. Computer aided detection with Litehouse 3D 3.1 was employed. FINDINGS: MAMMOGRAPHY TECHNIQUE: Bilateral MLO and CC views were obtained digitally with 3-D mammogram (digital breast tomosynthesis). ??Computer-aided detection was utilized in evaluation of this exam (CAD). The oval density in the left breast persist on spot compression views. ??The patient was referred to ultrasound for further evaluation. TISSUE DENSITY: b: There are scattered areas of fibroglandular density. ULTRASOUND TECHNIQUE: Targeted sonographic evaluation of the left was performed. Scanning was performed at 5 o'clock 3 to 4 cm from the nipple. ??This demonstrated a complex cystic area measuring 4 x 8 x 3 mm. ??This is benign. Procedure Note Immanuel Fang MD - 08/02/2024 EXAM: MG MAMMO DIAGNOSTIC ADDL VIEWS LEFT, US BREAST LIMITED LEFT [id number] EXAM DATE AND TIME: 08/02/2024 7:30 AM HISTORY: Additional views requested for mass in the left lower outerbreast. COMPARISON: 07/24/2024 TECHNIQUE: Unilateral left digital breast tomosynthesis was performed inthe CC and MLO projections as well as a full field true lateral. Computeraided detection with Litehouse 3D 3.1 was employed. FINDINGS: MAMMOGRAPHY TECHNIQUE: Bilateral MLO and CC views were obtained digitally with 3-Dmammogram (digital breast tomosynthesis). Computer-aided detection wasutilized in evaluation of this exam (CAD). The oval density in the left breast persist on spot compression views.The patient was referred to ultrasound for further evaluation. TISSUE DENSITY: b: There are scattered areas of fibroglandular density. ULTRASOUND TECHNIQUE: Targeted sonographic evaluation of the left was performed. Scanning was performed at 5 o'clock 3 to 4 cm from the nipple. Thisdemonstrated a complex cystic area measuring 4 x 8 x 3 mm. This isbenign. IMPRESSION: No mammographic or ultrasound evidence of malignancy. Benign cystic areawith mammographic and ultrasound correlation. BI-RADS: Category 2: Benign RECOMMENDATION(S): Routine screening mammogram BILATERAL in 1 year. -------- FINAL REPORT -------- Dictated By: IMMANUEL FANG Dictated Date: 08/02/2024 08:28 ET Assigned Physician: IMMANUEL FANG Reviewed and Electronically Signed By: IMMANUEL FANG Signed Date: 08/02/2024 08:55 ET Workstation ID: [id number] Transcribed By: Self Edit Transcribed Date: 08/02/2024 08:44 ET Ash Hinton MD IMG BI PROCEDURES Final Result * US Breast Limited Left (08/02/2024 8:55 AM EST) Anatomical Region Laterality Modality Breast Left Ultrasound 08/02/2024 8:28 AM EST Impressions 08/02/2024 8:55 AM EST No mammographic or ultrasound evidence of malignancy. ??Benign cystic area with mammographic and ultrasound correlation. BI-RADS: ??Category 2: Benign RECOMMENDATION(S): Routine screening mammogram BILATERAL in 1 year. -------- FINAL REPORT -------- Dictated By: IMMANUEL FANG Dictated Date: 08/02/2024 08:28 ET Assigned Physician: IMMANUEL FANG Reviewed and Electronically Signed By: IMMANUEL FANG Signed Date: 08/02/2024 08:55 ET Workstation ID: [id number] Transcribed By: Self Edit Transcribed Date: 08/02/2024 08:44 ET Narrative 08/02/2024 8:55 AM EST EXAM: MG MAMMO DIAGNOSTIC ADDL VIEWS LEFT, US BREAST LIMITED LEFT [id number] EXAM DATE AND TIME: 08/02/2024 7:30 AM HISTORY: Additional views requested for mass in the left lower outer breast. COMPARISON: 07/24/2024 TECHNIQUE: Unilateral left digital breast tomosynthesis was performed in the CC and MLO projections as well as a full field true lateral. Computer aided detection with Litehouse 3D 3.1 was employed. FINDINGS: MAMMOGRAPHY TECHNIQUE: Bilateral MLO and CC views were obtained digitally with 3-D mammogram (digital breast tomosynthesis). ??Computer-aided detection was utilized in evaluation of this exam (CAD). The oval density in the left breast persist on spot compression views. ??The patient was referred to ultrasound for further evaluation. TISSUE DENSITY: b: There are scattered areas of fibroglandular density. ULTRASOUND TECHNIQUE: Targeted sonographic evaluation of the left was performed. Scanning was performed at 5 o'clock 3 to 4 cm from the nipple. ??This demonstrated a complex cystic area measuring 4 x 8 x 3 mm. ??This is benign. Procedure Note Immanuel Fang MD - 08/02/2024 EXAM: MG MAMMO DIAGNOSTIC ADDL VIEWS LEFT, US BREAST LIMITED LEFT [id number] EXAM DATE AND TIME: 08/02/2024 7:30 AM HISTORY: Additional views requested for mass in the left lower outerbreast. COMPARISON: 07/24/2024 TECHNIQUE: Unilateral left digital breast tomosynthesis was performed inthe CC and MLO projections as well as a full field true lateral. Computeraided detection with Litehouse 3D 3.1 was employed. FINDINGS: MAMMOGRAPHY TECHNIQUE: Bilateral MLO and CC views were obtained digitally with 3-Dmammogram (digital breast tomosynthesis). Computer-aided detection wasutilized in evaluation of this exam (CAD). The oval density in the left breast persist on spot compression views.The patient was referred to ultrasound for further evaluation. TISSUE DENSITY: b: There are scattered areas of fibroglandular density. ULTRASOUND TECHNIQUE: Targeted sonographic evaluation of the left was performed. Scanning was performed at 5 o'clock 3 to 4 cm from the nipple. Thisdemonstrated a complex cystic area measuring 4 x 8 x 3 mm. This isbenign. IMPRESSION: No mammographic or ultrasound evidence of malignancy. Benign cystic areawith mammographic and ultrasound correlation. BI-RADS: Category 2: Benign RECOMMENDATION(S): Routine screening mammogram BILATERAL in 1 year. -------- FINAL REPORT -------- Dictated By: IMMANUEL FANG Dictated Date: 08/02/2024 08:28 ET Assigned Physician: IMMANUEL FANG Reviewed and Electronically Signed By: IMMANUEL FANG Signed Date: 08/02/2024 08:55 ET Workstation ID: [id number] Transcribed By: Self Edit Transcribed Date: 08/02/2024 08:44 ET us Ash Hinton MD IM US PROCEDURES Final Result * (ABNORMAL) MG Mammo Digital Screening w Arun bilat (07/24/2024 11:02 AM EST) Anatomical Region Laterality Modality Breast Bilateral Mammography 07/24/2024 11:3 9 AM EST Impressions 07/24/2024 11:51 AM EST Oval mass in the left breast. Recommend spot compression views and 90 degree lateral for further evaluation. BI-RADS CATEGORY: 0 - INCOMPLETE - NEED ADDITIONAL IMAGING EVALUATION RECOMMENDATION: Additional left breast imaging recommended. Mammo Location: [facility], [address] [place] [address], [id number], . -------- FINAL REPORT -------- Dictated By: Diamond Foss Dictated Date: 07/24/2024 11:39 ET Assigned Physician: Diamond Foss Reviewed and Electronically Signed By: Diamond Foss Signed Date: 07/24/2024 11:51 ET Workstation ID: [id number] Transcribed By: Self Edit Transcribed Date: 07/24/2024 11:39 ET Narrative 07/24/2024 11:51 AM EST CLINICAL: 64 years old, Female, routine annual exam. COMPARISON: 07/03/2023, 06/30/2022, 05/27/2021 and 05/26/2020 ?? TECHNIQUE: Bilateral MLO and CC views were obtained digitally with 3-D mammogram (digital breast tomosynthesis). Computer-aided detection was utilized in evaluation of this exam (CAD). FINDINGS: There is a 9 mm oval mass in the left lower outer breast at approximately 5 o'clock 3-4 cm from the nipple at middle depth with partially obscured margins. No suspicious calcifications or architectural distortion in either breast. Stable small oval mass in the left breast at 12 o'clock. BREAST DENSITY: B - There are scattered areas of fibroglandular density. Procedure Note Diamond Foss MD - 07/24/2024 CLINICAL: 64 years old, Female, routine annual exam. COMPARISON: 07/03/2023, 06/30/2022, 05/27/2021 and 05/26/2020 TECHNIQUE: Bilateral MLO and CC views were obtained digitally with 3-Dmammogram (digital breast tomosynthesis). Computer-aided detection wasutilized in evaluation of this exam (CAD). FINDINGS: There is a 9 mm oval mass in the left lower outer breast at approximately5 o'clock 3-4 cm from the nipple at middle depth with partially obscuredmargins. No suspicious calcifications or architectural distortion ineither breast. Stable small oval mass in the left breast at 12 o'clock. BREAST DENSITY: B - There are scattered areas of fibroglandular density. IMPRESSION: Oval mass in the left breast. Recommend spot compression views and 90degree lateral for further evaluation. BI-RADS CATEGORY: 0 - INCOMPLETE - NEED ADDITIONAL IMAGING EVALUATION RECOMMENDATION: Additional left breast imaging recommended. Mammo Location: [facility], [address] [place] [address], [phone], . -------- FINAL REPORT -------- Dictated By: Diamond Foss Dictated Date: 07/24/2024 11:39 ET Assigned Physician: Diamond Foss Reviewed and Electronically Signed By: Diamond Foss Signed Date: 07/24/2024 11:51 ET Workstation ID: [id number] Transcribed By: Self Edit Transcribed Date: 07/24/2024 11:39 ET us Self Referral Sppl IMG BI PROCEDURES Final Resul t from Last 3 Months Insurance [facility] MEDICAID ADVANTAGE [address] [place] [address] Care Teams Wet Process Miller Head Assistant Relationship Specialty Start Date End Date Ash Hitnon MD [address] [place] [phone] PCP - General 04/17/24
== END 2024-10-01 16:14 | disposition home or self-care (01) ==
LOC: HO.HPS 15:52
PROVIDERS: PCP Nurse Practitioner Family; Visit Provider Hospitalist
DX: J44.1 Chronic obstructive pulmonary disease with (acute) exacerbation (principal); C34.11 Malignant neoplasm of upper lobe, right bronchus or lung; G47.33 Obstructive sleep apnea (adult) (pediatric); J40 Bronchitis, not specified as acute or chronic
CPT/HCPCS: 99214

== ENCOUNTER → 2024-10-01 15:52 | Outpatient (BNVA) | payer OTHER, SELFPAY | PROVIDERS: PCP Nurse Practitioner Family; Visit Provider Hospitalist | DX: J44.89 Other specified chronic obstructive pulmonary disease (principal); J44.1 Chronic obstructive pulmonary disease with (acute) exacerbation; J40 Bronchitis, not specified as acute or chronic; C34.11 Malignant neoplasm of upper lobe, right bronchus or lung; G47.33 Obstructive sleep apnea (adult) (pediatric) | CPT/HCPCS: 99212 ==

== ENCOUNTER 2025-04-21 08:41 | Outpatient (AMB) | payer OTHER, SELFPAY ==
--- OUTSIDE RECORDS SUMMARY | 2025-04-15 08:33 | XMS_ITS | Encounter Summary ---
Author Organization [facility] Address [address] [place] [address] Care Team Providers Care [employer] Name Role Phone Ash Hinton MD Primary Care Provider [phone] Reason for Referral * Imaging (Routine) - Closed Specialty Diagnoses / Procedures Referred By Marc t Referred To Contact Radiology Diagnoses History of lung cancer Procedures CT Chest wo Contrast Babs Templeton PA [address] [address] Phone: tel: fax: [address] [address] Phone: tel: Referral ID Status Reason Start Date Expiration Date Visits Re quested Visits Authorized [id number] Closed 03/03/2025 05/02/2025 1 1 Reason for Visit * Imaging (Routine) - Closed Specialty Diagnoses / Procedures Referred By Contac t Referred To Contact Radiology Diagnoses History of lung cancer Procedures CT Chest wo Contrast Babs Templeton PA [address] [facility] [address] [place] [address] Phone: tel: fax: [address] [address] Phone: tel: Referral ID Status Reason Start Date Expiration Date Visits Re quested Visits Authorized [id number] Closed 03/03/2025 05/02/2025 1 1 Encounter Details Date Type Department Care Team (Latest Contact Info) Description 04/15/2025 9:33 AM EDT - 04/15/2025 11:59 PM EDT Hospital Encounter [facility] CT Scan [address] [place] [address] History of lung cancer Discharge Disposition: Home or Self Care Social History Tobacco Use Types Packs/Day Years Used Date Smoking Tobacco: Former Cigarettes Q uit: 1979 Smokeless Tobacco: Current Alcohol Use Standard Drinks/Week Comments Not Currently 0 (1 standard drink = 0.6 oz pur e alcohol) Interpersonal Safety Answer Date Record ed Physical Abuse Unrecognized value 10/16/2024 Verbal Abuse Unrecognized value 10/16/2024 Comments No Sex and Gender Information Value Date Recorded Sex Assigned at Female 08/02/2024 2:36 PM EST Legal Sex Female 8:51 PM EST Gender Identity Female 08/02/2024 2:36 PM EST Sexual Orientation Straight 08/02/2024 2: 36 PM EST documented as of this encounter Medications at Time of Discharge acetaminophen (TYLENOL) 325 mg tablet Take 2 tablets (650 mg total) by mouth every 6 hours as needed. 04/25/2024 amLODIPine (NORVASC) 10 mg tablet Take 1 tablet (10 mg total) by mouth 1 (one) time each day. aspirin 325 mg tablet Take 1 tablet (325 mg total) by mouth 1 (one) time each day. atorvastatin (LIPITOR) 80 mg tablet Take 1 tablet (80 mg total) by mouth daily. 11/16/2023 budesonide/glyco pyr/formoterol (BREZTRI AEROSPHERE INHL) INHALE 2 PUFFS TWICE A DAY 12/03/2021 clopidogreL (PLAVIX) 75 mg tablet Take 1 tablet (75 mg total) by mouth 1 (one) time each day. folic acid (FOLVITE) 400 mcg tablet Take 1 tablet (0.4 mg total) by mouth 1 (one) time each day. 09/02/2024 ibuprofen (ADVIL,MOTRIN) 200 mg tablet Take 1 tablet (200 mg total) by mouth every 6 hours as needed. ipratropium-albu teroL (DUONEB) 0.5-2.5 mg/3 mL nebulizer solution Take 3 mL by nebulization if needed for shortness of breath. nicotine (NICODERM CQ) 21 mg/24 hr - Route: Place 1 Patch onto the skin daily pantoprazole (PROTONIX) 40 mg EC tablet Take 1 tablet (40 mg total) by mouth 2 (two) times a day. sertraline (ZOLOFT) 50 mg tablet Take 1 tablet (50 mg total) by mouth 1 (one) time each day. documented as of this encounter Discharge Disposition Disposition Code Departure Means Destination Home or Self Care documented in this encounter Plan of Treatment Upcoming Encounters Date Type Department Care Team (Late st Contact Info) Description 04/24/2025 9:00 AM EST Office Visit Thoracic Surgery - [address] [phone] Babs Templeton PA [address] [place] [phone] documented as of this encounter Procedures Procedure Name Priority Date/Time Associated Diagnosis Comments CT CHEST WO CONTRAST Routine 04/15/2025 9:57 AM EDT History of lung cancer documented in this encounter Results * CT Chest wo Contrast (04/15/2025 9:57 AM EDT) Anatomical Region Laterality Modality Body Computed Tomogra phy 04/21/2025 7:17 AM EST Impressions 04/21/2025 7:26 AM EST Stable postoperative changes of right upper and middle lobectomy. No evidence of local recurrence or metastatic disease. -------- FINAL REPORT -------- Dictated By: Javed Luis Dictated Date: 04/21/2025 07:17 ET Assigned Physician: Javed Luis Reviewed and Electronically Signed By: Javed Luis Signed Date: 04/21/2025 07:26 ET Workstation ID: [id number] Transcribed By: Self Edit Transcribed Date: 04/21/2025 07:17 ET Narrative 04/21/2025 7:26 AM EST EXAMINATION: CT CHEST WITHOUT CONTRAST CLINICAL INFORMATION: History of lung cancer. Surveillance. ?Robotic right upper and middle bilobectomy for a minimally invasive adenocarcinoma (pT1a(mi), pN0) in December 2022. COMPARISON: Portions of previous 09/30/24 TECHNIQUE: Multidetector CT. Examination of the chest. Examination of the chest without IV contrast. Reformatting in the coronal and sagittal planes. DLP: 267 mGy-cm Dose optimization was performed including the use of low-dose iterative reconstruction technique with automatic exposure control based on patient size. Type of contrast: None Volume of IV contrast: None Volume of contrast discarded: 0 mL FINDINGS: LUNG: The stump from right upper lobectomy and right middle lobectomy appears unchanged with no evidence of local recurrence. The trachea is deviated to the right. Minor secretions in the mid trachea. No new suspicious mass or nodule. No significant interstitial lung abnormalities. MEDIASTINUM: No suspicious mediastinal or hilar lymph nodes. No suspicious abnormality the esophagus. CARDIAC: The heart is not enlarged. No pericardial fluid or thickening CORONARY CALCIFICATION: There are moderate coronary calcifications. VASCULAR: The central pulmonary arteries are prominent. PLEURA: There is no pleural fluid or pneumothorax AXILLA/CHEST WALL: There are no enlarged axillary lymph nodes. No chest wall mass demonstrated VISUALIZED UPPER ABDOMEN: No suspicious abnormality on limited assessment of the visualized upper abdomen. Unchanged probable cyst ventral aspect left lobe liver. MUSCULOSKELETAL: No suspicious focal bony lesion. Procedure Note Javed Luis MD - 04/21/2025 EXAMINATION: CT CHEST WITHOUT CONTRAST CLINICAL INFORMATION: History of lung cancer. Surveillance. ?Robotic right upper and middlebilobectomy for a minimally invasive adenocarcinoma (pT1a(mi), pN0) [id number]. COMPARISON: Portions of previous 09/30/24 TECHNIQUE: Multidetector CT. Examination of the chest. Examination of the chest without IV contrast. Reformatting in the coronal and sagittal planes. DLP: 267 mGy-cm Dose optimization was performed including the use of low-dose iterativereconstruction technique with automatic exposure control based on patientsize. Type of contrast: None Volume of IV contrast: None Volume of contrast discarded: 0 mL FINDINGS: LUNG: The stump from right upper lobectomy and right middle lobectomyappears unchanged with no evidence of local recurrence. The trachea isdeviated to the right. Minor secretions in the mid trachea. No new suspicious mass or nodule. No significant interstitial lung abnormalities. MEDIASTINUM: No suspicious mediastinal or hilar lymph nodes. Nosuspicious abnormality the esophagus. CARDIAC: The heart is not enlarged. No pericardial fluid or thickening CORONARY CALCIFICATION: There are moderate coronary calcifications. VASCULAR: The central pulmonary arteries are prominent. PLEURA: There is no pleural fluid or pneumothorax AXILLA/CHEST WALL: There are no enlarged axillary lymph nodes. No chestwall mass demonstrated VISUALIZED UPPER ABDOMEN: No suspicious abnormality on limited assessmentof the visualized upper abdomen. Unchanged probable cyst ventral aspectleft lobe liver. MUSCULOSKELETAL: No suspicious focal bony lesion. IMPRESSION: Stable postoperative changes of right upper and middle lobectomy. Noevidence of local recurrence or metastatic disease. -------- FINAL REPORT -------- Dictated By: Javed Luis Dictated Date: 04/21/2025 07:17 ET Assigned Physician: Javed Luis Reviewed and Electronically Signed By: Javed Luis Signed Date: 04/21/2025 07:26 ET Workstation ID: [id number] Transcribed By: Self Edit Transcribed Date: 04/21/2025 07:17 ET Babs DYKES IM CT PROCEDURES Final Resul t documented in this encounter Visit Diagnoses Diagnosis History of lung cancer Personal history of malignant neoplasm of bronchus and lung documented in this encounter Care Teams [employer] Relationship Specialty Start Date End Date Ash Hinton MD [address] [place] [id number] PCP - General 04/17/24 documented as of this encounter
[2025-04-21 08:45] VITALS: BP 110/54; PULSE 78; O2SAT 98; BMI 23.0
--- NOTE | 2025-04-21 08:45 | A.OFFVIS_ITS ---
Vital Signs 04/21/25 08:45 Height 4 ft 8 in Weight 102 lb 8.239 oz BMI 23.0 BP 110/54 L Blood Pressure Location Lt brachial Position Sitting Pulse 78 Pulse Source Pulse Oximeter Pulse Oximetry (%) 98 Oxygen Delivery Method Room Air Intake Visit Reasons: CT scan F/U Environmental Engineer Required: No Accompanied by: Self / Same As Patient Allergies Keflex Allergy (Mild, Uncoded 04/09/24 11:27) Swelling in throat PCN Allergy (Mild, Uncoded 04/09/24 11:27) Itches and Rash HPI Comments Details: The patient is a 64-year-old woman with a known history of asthma COPD overlap syndrome, mold allergies in pulmonary nodules. The patient has had multiple pulmonary nodules which appeared to be ground-glass the or subsolid in nature. Apparently manifesting more in the upper lung zones. Her last CT scan of the chest was done back in November of 2017 demonstrating stable nodular densities when compared to 2017. At this point the patient continues to smoke unfortunately. She is trying to cut down. At this she is high risk for malignancy. Has a significant family history of different cancers in the family. Therefore this point the patient is to be re-evaluated. In the meantime back in June she was diagnosed with the flu. She was given Tamiflu and also diagnosed with a COPD exacerbation. She was given prednisone and subsequently was also giving antibiotics have so she was not getting any better. She still having worsening cough productive in nature along with shortness of breath. 04/05/2023 the patient is here for pulmonary follow-up visit. The patient continues to do well after her surgery for her lung cancer. Stage I is did not need any adjuvant therapies. She does complaint of a cough which has been productive in nature since after surgery. Has not gotten any worse but just has not gotten any better either. Denies any fevers or chills. Denies any wors ening shortness of breath. Will go ahead and treat her with doxycycline for potential smoldering infection. Unfortunately to the patient continues to smoke cigarettes. She is been struggling specially when she gets agitated. Will go ahead and prescribe her nicotine patches and also hopefully she can get the Nicotrol inhaler that she can use as breakthrough. She is following closely with thoracic surgery in her next CT scan be in June. If her cough is no better she can always call we can do a chest x-ray on earlier time. However, this point take as necessary. 10/10/2023 the patient is here for a pulmonary follow-up visit. Since we last spoke seems to be doing okay now. The patient did follow-up with thoracic surgery and did have a CT scan demonstrating no recurrence of her cancer. The patient continues use her inhalers on a regular basis and still needs her rescue medicine once or twice a day. She does get short of breath and chest tightness at times. She has no longer smoking which is reassuring. She did have an episode where she started developing left shoulder discomfort and palpitations and shortness of breath. EMS was called to the scene and the patient was taken to [facility] where she was evaluated. There she had a CTA. She ruled out for a pulmonary emboli. I did personally review her CT scan. She did have some postoperative changes. In addition to that had some ground-glass opacities of the right base. This suggests the possibility of inflammation versus infectious lower respiratory process. In addition to that the patient did have an echocardiogram which is reassuring. Her cardiac enzymes were indeed elevated. She was recommended to stay and have a stress test as an inpatient but the patient was reluctant and therefore she went home. Now she still complaining of some shortness breath. 04/09/2024 the patient is here for a pulmonary follow-up visit. Overall the patient is doing well. She did have a few bouts of issues with blood pressure where she was having labile blood pressure. There was also question of a stroke. She had gone to the ED twice. Both her [facility]. At the last time the patient did have a CT with and without contrast of the brain. It demonstrated that she had an 8 mm cerebral artery aneurysm. She was evaluated by Neurosurgery at [facility] and subsequently had a 2nd opinion at [facility] where it was recommended that she have an intervention. She is scheduled next month for intervention. However, she was also found to be significantly anemic. She received multiple courses of IV infusions of iron in now is being evaluated for an occult bleed. From a respiratory status the patient is doing well. She is getting his serial CT scans through [facility] after being diagnosed with stage I lung cancer. She also has other pulmonary nodules. As far as her smoking she is cutting down significantly. She still using the nicotine patch. She is almost done with her cigarettes. She understands she also developed a condition of respiratory bronchiolitis from smoking and therefore when she quit altogether it will improve her respiratory status. The patient is doing well on the current respiratory therapy so will continue therapy will follow-up in a year's time. If the patient develops capacity demonstrates it. 10/01/2024 the patient is here for sick visit. She has been sick for a couple weeks. Started developing worsening cough has congestion. Positive sick contacts as she was in a wedding and also had been on phenobarb before that. Other family members have been sick. She started that developing significant rattling of the chest and wheezing chest tightness. She has a hard time sleeping. Denies any more fevers although she still has some chills have off at times. Nobody really got tested for any viral syndromes. So we not sure although likely doubt is more like a postviral bacterial infection. Her cough sounds more like tracheitis. Therefore started on some azithromycin for now and also start him on some prednisone. The patient does off medication. She is going to home by the end of the week to make sure she is making progress. If she is not doing any better we can adjusting medication regimen at that point. She will follow-up in December she has an issues prior to that she will call for an earlier assessment. Also to note she has a CT scan of the chest scheduled soon. Will make a note to her to make sure that she is feeling better before getting that CAT scan. LB done at [facility]. 04/21/2025 the patient is here for pulmonary follow-up visit. Overall the patient is doing well. She recently did have a CT scan of the chest at [facility] for the follow-up lung cancer surgery. Overall though she is doing well. Hopefully we can get the results. In the meantime she continues her respiratory inhalers with good response. The patient has not required any prednisone since last time we saw each other. She does have some chest congestion. [id number]. Will talk about adding Daliresp to her regimen to see if this is something reasonable for her to try. Otherwise she can start macrolide suppression therapy for short while. Clinical see if if it is [facility] Medical History (Updated 10/01/24 @ 23:22 by Paulo Brunner MD) Iron deficiency anemia Cerebral aneurysm Palpitation Elevated troponin Lung cancer Pulmonary nodule Bronchopneumonia Tobacco dependence Pneumonitis Pulmonary nodules COPD (chronic obstructive pulmonary disease) Family History Other Testicular cancer Social History Alcohol intake: current Alcohol intake frequency: holidays/special occasions only Patient Tobacco Use Status: Former Tobacco user Tobacco use type: Cigarette Years Smoked: 40+ years Review of Systems Const Reports chills, Reports fatigue, Denies fever(s), Denies weight gain and Denies weight loss Eyes Reports as per HPI ENT Denies dizziness, Denies lip swelling and Denies tongue swelling Card Denies chest pain, Denies leg edema, Denies lightheadedness, Denies pal pitations, Reports dyspnea on exertion, Denies orthopnea and Denies other Resp Reports chest congestion, Reports cough, Denies hemoptysis, Reports dyspnea on exertion and Denies wheezing GI Denies hematochezia and Denies change in stool character Musc Denies abnormal gait, Denies muscle weakness, Denies numbness, Denies radiating pain into limb and Denies tingling Neuro Denies abnormal gait, Denies dizziness, Denies numbness and Denies tingling Psych Denies no additional complaints Endo Reports fatigue and Denies palpitations Urbano/Lymph Denies easy bleeding and Denies lymphadenopathy Aller/Immun Denies lip swelling, Denies tongue swelling and Denies wheezing Physical Exam Vital Signs: Last Vital Signs Pulse 78 04/21/25 08:45 BP 110/54 L 04/21/25 08:45 Pulse Ox 98 04/21/25 08:45 Oxygen Delivery Method Room Air 04/21/25 08:45 BMI result Body Mass Index 23.0 Const General: alert Neck Neck: Yes normal visual inspection, Yes full ROM and Yes no lymphadenopathy Chest Chest palpation & inspection: normal inspection of the chest Resp Effort & Inspection: Actively coughing Quality: whooping Auscultation: no crackles, rhonchi, wheezes and diminished lung sounds Cardio Rate: regular rate Rhythm: regular rhythm Heart sounds: S1 normal heart sound present and S2 normal heart sound present GI Palpation (GI): Soft to palpation and nontender Auscultation: normal bowel sounds General: Yes no CVA tenderness Back/Spine/Pelvis Back: no CVA tenderness Skin General skin exam: rashes and/or lesions noted Assessment & Plan Assessment & Plan (1) COPD (chronic obstructive pulmonary disease): Code(s): J44.9 - Chronic obstructive pulmonary disease, unspecified Category: Medical Qualifiers: COPD type: COPD with acute exacerbation Qualified Code(s): J44.1 - Chronic obstructive pulmonary disease with (acute) exacerbation (2) Lung cancer: Code(s): C34.90 - Malignant neoplasm of unspecified part of unspecified bronchus or lung Category: Medical Qualifiers: Laterality: right Lung location: upper lobe of lung Qualified Code(s): C34.11 - Malignant neoplasm of upper lobe, right bronchus or lung (3) YASMANI (obstructive sleep apnea): Code(s): G47.33 - Obstructive sleep apnea (adult) (pediatric) Category: Medical Plan CT chest per Thoracic surgery protocol continue Breztri Nebulizer with duoneb as needed endovascular intervention for the cerebral aneurysm F/U 8-12 months Coding Level of Care Code Est Pt Level 4 (06790) Complex EM visit Add On G2211 Diagnoses Chronic obstructive pulmonary disease with acute exacerbation J44.1 COPD type: COPD with acute exacerbation Malignant neoplasm of upper lobe of right lung C34.11 Laterality: right Lung location: upper lobe of lung YASMANI (obstructive sleep apnea) G47.33 Time Spent (min) 17
--- OUTSIDE RECORDS SUMMARY | 2025-04-21 09:10 | XMS_ITS | Encounter Summary ---
Author Organization [facility] Address [address] [facility] [address] [place] [address] Phone Care Team Providers Care Database Dba Name Role Phone Praveena Nj NP Primary Care Provider [phone] Reason for Visit * Reason Comments Medication Refill Encounter Details Date Type Department Care Team (Late st Contact Info) Description 03/25/2025 Refill [facility] Department of Neurosurgery [address] [place] [address] Damien Blair PA-C [address] [facility] 4th [place] [address] [email or web address] Medication Refill Social History Tobacco Use Types Packs/Day Years Used Date Smoking Tobacco: Every Day Cigarettes Smokeless Tobacco: Never Alcohol Use Standard Drinks/Week Comments Yes 0 (1 standard drink = 0.6 oz pur e alcohol) Education Answer Date Recorded Are you interested in more education? Not on oly e 10/14/2022 Are you concerned about learning? Not on file 10/14/2022 No 10/14/2022 No 10/14/2022 Food Answer Date Recorded Within the past 6 months we worried whether our food would run out before we got money to buy more. Never True 04/23/2024 Within the past 6 months the food we bought just didn't last and we didn't have enough money to get more. Never True Residential Stability Answer Date Recor ded What is your housing situation today? I have moira sing 04/23/2024 How many times have you move d in the past 12 months? Zero (I did not move) 04/23/2024 Paying for Meds Answer Date Recorded Do you have trouble paying for medicines? No 04/23/2024 Paying Utility Bills Answer Date Record ed Do you have trouble paying your heating or elect ricity bill? No 04/23/2024 Transportation Answer Date Recorded Has the lack of transportati on kept you from medical appointments or from getting medications? No 04/23/2024 Digital Access Answer Date Recorded No 04/23/2024 Yes 04/23/2024 Do you have reliable internet access at home? Ye s 04/23/2024 Do you have a device (e.g., phone, tablet, computer) with a working camera? Yes 04/23/2024 Intimate Partner Violence Answer Date R ecorded Are you denied basic needs s uch as food, clothing, or medical care? No 10/29/2024 In the past 12 months have y ou been in a relationship with a person who hurts, threatens, or tries to control you? No 10/29/2024 Are you denied basic needs s uch as food, clothing, or medical care? No 10/29/2024 In the past 12 months have y ou been in a relationship with a person who hurts, threatens, or tries to control you? No 10/29/2024 Comments Unknown Sex and Gender Information Value Date Recorded Sex Assigned at Female 10/01/2018 12:18 PM EDT Legal Sex Female 12:04 PM EDT Gender Identity Female 10/01/2018 12:18 PM EDT Sexual Orientation Straight 03/01/2024 2: 39 PM EDT documented as of this encounter Plan of Treatment Upcoming Encounters Date Type Department Care Team (Late st Contact Info) Description 10/29/2024 Procedure Pass [facility] Neuro Interventional Radiology [address] [place] [address] 04/29/2025 8:00 AM EST Hospital Encounter [facility] Neuro Interventional Radiology [address] [place] [address] Andreia Fields MD [address] [place] [address] Department of Neurosurgery, [address] [address] [email or web address] documented as of this encounter Visit Diagnoses Diagnosis Cerebral aneurysm, nonruptured documented in this encounter Care Teams Database Dba Relationship Specialty Start Date End Date Praveena Nj NP [address] [place] [id number] PCP - General Nurse Practitioner 02/29/24 documented as of this encounter Additional Source Comments The information contained in this document represents components of the legal health record. It is not the complete legal health record.[facility]
--- OUTSIDE RECORDS SUMMARY | 2025-04-21 09:10 | XMS_ITS | Clinical Summary ---
Author Organization [facility] Address [address] [place] [address] [place] [address] Phone Care Team Providers Care Founder & Ceo Name Role Phone Praveena Nj NP Primary Care Provider Allergies Active Allergy Reactions Criticality Noted Date Comments Cephalexin Anaphylaxis High 12/04/2016 Throat tightness Singaporean Rupert 07/25/2017 walnuts Morphine Itching Medium 12/13/2018 Itchy all over Penicillins Anaphylaxis High 12/04/2016 Itchy everywhere within 20 minutes and chest tightness Tyrrell Seed 07/25/2017 Tyrrell seeds Medications amLODIPine (NORVASC) 10 MG tablet Take 1 tablet by mouth daily. 4 Active sertraline (ZOLOFT) 50 MG tablet Take 50 mg by mouth daily. 3 Active atorvastatin (LIPITOR) 80 MG tablet Take 80 mg by mouth daily. 4 Active BREZTRI AEROSPHERE 160-9-4.8 mcg/actuation inhaler Inhale 2 puffs into the lungs 2 (two) times a day. Active NICODERM CQ 21 mg/24 hr Apply topically. 3 Active ipratropium-albu teroL (DUONEB) 0.5-3 mg (2.5 mg base)/3 mL nebulizer solution 3ML VIA UPDRAFT EVERY 6 HOURS NEEDED FOR WHEEZING 3 Active bisacodyl (DULCOLAX) 5 mg EC tablet Take 1 tablet (5 mg total) by mouth daily as needed. 20 tablet 4 Active polyethylene glycol (MIRALAX) 17 gram packet Take 17 g by mouth daily as needed for other (free text field) (severe constipation ). 14 packet 4 Active acetaminophen (TYLENOL) 325 mg tablet Take 2 tablets (650 mg total) by mouth every 6 (six) hours as needed. 30 tablet 4 Active ibuprofen (ADVIL,MOTRIN) 200 MG tablet Take 200 mg by mouth every 6 (six) hours as needed for pain (specific location in comments). Active aspirin 325 MG tabletIndication s:Cerebral aneurysm, nonruptured Take 1 tablet (325 mg total) by mouth daily. 30 tablet 11 5 03/26/20 26 Active aspirin 325 MG tabletIndication s:Cerebral aneurysm, nonruptured Take 1 tablet (325 mg total) by mouth daily. 30 tablet 11 4 03/26/20 25 Discontinu ed(Reorder ) Active Problems Problem Noted Date Diagnosed Date Cerebral aneurysm, nonruptured 04/23/2024 Aneurysm of intracranial por tion of right internal carotid artery 03/21/2024 COPD with emphysema 03/21/2024 Polyp of colon 03/21/2024 Overview (03/21/2024): colonoscopy in 12/08 - advised repeat in 11/2026 (5 years) Prediabetes 03/21/2024 Tobacco use 03/21/2024 Folic acid deficiency 01/15/2024 Generalized anxiety disorder 01/15/2024 HPV in female 01/15/2024 Mass of right finger 01/15/2024 Osteoporosis 01/15/2024 S/P partial lobectomy of lung 01/15/2024 Overview (03/21/2024): Patient partial lobectomy on the right. Patient has history of adenocarcinoma TIA (transient ischemic attack) 01/15/2024 Overview (03/21/2024): TIA Treated at [facility] Aneurysm in Brain History of lung cancer 01/09/2023 Overview (03/21/2024): Last Assessment & Plan: 63-year-old woman status post da Bre right upper/middle lobe bilobectomy for stage I adenocarcinoma. She has recovered quite well from her surgery and as I discussed with her in detail there is no evidence of recurrence or new disease on her most recent CT scan. She is quite active and walking every day and there is no clinical evidence of recurrence or new disease as well. I discussed with her the surveillance protocol after surgery for lung cancer which is a CAT scan every 6 months for the first 2 years postoperatively followed by yearly for 3 years after that as long as there are no new changes. All questions were answered. Plan then is for a CAT scan in 6 months and a follow-up visit in the office 1 more time with me after that. She wants her CAT scans done here at [facility] and we should send all this information to Dr. Brunner and [facility]. Lumbar radiculopathy 01/03/2023 Overview (03/21/2024): Last Assessment & Plan: I reviewed this [...] of neuropathy and then finalize a plan. LGSIL on Pap smear of cervix 04/12/2019 Overview (03/21/2024): 09/2017; HPV + Postmenopausal bleeding 12/25/2017 Trigger finger, right middle finger 12/25/2017 Overview (03/21/2024): Patient to be scheduled for surgery Overview: Patient to be scheduled for surgery Large liver 10/11/2017 Chronic bilateral low back pain without sciatica 07/26/2017 Overview (03/21/2024): Referral to Ortho MRI obtained showed Spondylolisthesis L4-5 with associated moderate neural foraminal narrowing. Overview: Referral to Ortho MRI obtained showed Spondylolisthesis L4-5 with associated moderate neural foraminal narrowing. Neuropathy involving both lower extremities 02/18 Acromegaly 12/04/2016 Allergic rhinitis 12/04/2016 Asthma 12/04/2016 Resolved Problems Problem Noted Date Diagnosed Date Resolved Date Excessive thirst 03/21/2024 03/21/2024 S/P trigger finger release 03/12/2024 1 External hemorrhoids 04/12/2019 024 Infection of hand 12/13/2018 03/21/2024 Assessment & Plan (02/28/2019 12:36 PM EDT): Yeast infection of palm. Despite not taking any antifungal agents , the patient claims that the lesion has not changed and is not tender . It is possible that the debridement cured her infection, and/or allowed her immune system to take care of the remainder of infection present. At the time the patient left the office I did not have the MRI results. However they have since come in, and the MRI shows no evidence of osteomyelitis but there is evidence of tenosynovitis. I will call the patient and give her the option of taking medication at this time awaiting to see if the lesion changes between now and the next visit RTC 6 weeks Assessment & Plan (01/03/2019 1:23 PM EDT): Although the area of debridement appears to be healing, given that yeast was found on culture, I think it is most wang to go ahead and treat with Diflucan. I also reviewed with the patient the plain film findings which question whether there is osteomyelitis at the base of the third finger. I did review this film with the radiologist who said she could not be sure, however there are changes present since the last film in September. Sedimentation rate and CRP are normal, so they will not be helpful in following treatment Plan 1. Patient agrees to take Diflucan 200 mg daily for at least 2 weeks. She will do an EKG to look at her QT interval after 3 to 5 days of therapy 2. After 2 weeks she will come for liver function testing, as she is quite concerned about any liver damage. 3. I gave her an order for an MRI which she will take back to the place in [place] where she had the first 1 done so they can look for differences 4. If osteomyelitis is present, or we are not sure, I would encourage her to take another 2 weeks (total of a month) of treatment as long as she is tolerating it well 5. She knows that I will be away part of that time if she has any concerns or questions. She should call the office and speak with the nurses who can contact me or my colleagues 6. I will see her in 4 weeks when I return from vacation Assessment & Plan (12/13/2018 3:43 PM EDT): Otherwise healthy 58-year-old with a slow-growing mass on her palm at the base of her third finger. Possibly related to an injection last July although several months went by without any problems. On November 07 she had debridement by Dr. Francis, and the wound was left open. The patient was off antibiotics for at least a month prior to surgery. Routine cultures were negative except for yeast. AFB is pending but is negative so far. Also of note is erythema between her fingers which is consistent with yeast. I do think it is very likely that this was a slow-growing yeast infection of the soft tissues. I do think it is reasonable to give her a course of fluconazole 200 mg daily for 14 days. I have asked her to do lab work to look for sedimentation rate and CRP to see if there are any parameters we can follow. She will also have a repeat x-ray of the hand to rule out osteomyelitis, as the finding of osteomyelitis would change her course of therapy. She will have an EKG early next week to check her QT interval. I will see her back in 2 weeks to check on her progress. She knows to call if problems arise Flexor tenosynovitis of finger 01/05/2018 03/21/2024 Overview (03/21/2024): Pt was diagnose with flexor tenosynovitis on her right finger , from [facility] Abnormal ultrasound of breast 10/30/2017 03/21/2024 Overview (03/21/2024): [facility] Breast uni limited lt 10/27/2017 Simple cyst left breast 4:00 position 3 cm from the nipple accounting for mammographic findings Overview: [facility] Breast uni limited lt 10/27/2017 Simple cyst left breast 4:00 position 3 cm from the nipple accounting for mammographic findings Onychomycosis 04/22/2017 03/21/2024 Hypersensitivity pneumonitis 12/04/2016 03/21/2024 Lung nodule 12/04/2016 03/21/2024 Overview (03/21/2024): CT chest 11/21/17. Grossly stable multifocal small groundglass opacities throughout the lungs with upper lobe predominance. Overview: CT chest 11/21/17. Grossly stable multifocal small groundglass opacities throughout the lungs with upper lobe predominance. Encounters Date Type Department Care Team Description 04/17/2025 Orders Only [facility] Department of Neurosurgery [address] [place] [address] Damien Blair PA-C Pre-op examination (Primary Dx); Cerebral aneurysm, nonruptured 03/26/2025 Orders Only [facility] Department of Neurosurgery [address] [place] [address] Damien Blair PA-C Cerebral aneurysm, nonruptured 03/25/2025 Refill [facility] Department of Neurosurgery [address] [place] [address] Daimen Blair PA-C Medication Refill 03/13/2025 Telephone [facility] Neuro Interventional Radiology [address] [place] [address] Sadie Warner PA-C from Last 3 Months Family History Medical History Relation Comments Pancreatic cancer Brother 1 Liver cancer Brother 2 Breast cancer Mother Dementia Mother Pancreatic cancer Sister Relation Status Comments Brother 1 Brother 2 Father Mother Sister Alive Social History Tobacco Use Types Packs/Day Years Used Date Smoking Tobacco: Every Day Cigarettes Smokeless Tobacco: Never Tobacco Cessation:Ready to Q uit: Not Asked; Counseling Given: Not Answered Alcohol Use Standard Drinks/Week Comments Yes 0 [...] Orientation Straight 03/01/2024 2: 39 PM EDT Last Filed Vital Signs Vital Sign Reading Time Taken Comments Blood Pressure 92/53 10/29/2024 11:15 AM EDT Pulse 74 10/29/2024 11:15 AM EDT Temperature 36.6 C (97.9 F) 10/29/2024 10:15 AM EDT Respiratory Rate 57 10/29/2024 10:10 AM EDT Oxygen Saturation 98% 10/29/2024 11:15 AM EDT Inhaled Oxygen Concentration - - Weight 49 kg (108 lb) 10/29/2024 7:43 AM EDT Height 137.2 cm (4' 6 ) 10/29/2024 7:43 AM EDT Body Mass Index 26.04 10/29/2024 7:43 AM EDT Plan of Treatment Upcoming Encounters Date Type Department Care Team (Late st Contact Info) Description 10/29/2024 Procedure Pass [facility] Neuro Interventional Radiology [address] [place] [address] 04/29/2025 8:00 AM EST Hospital Encounter [facility] Neuro Interventional Radiology [address] [place] [address] Andreia Fields MD [address] [place] [address] Department of Neurosurgery, [address] [address] [email or web address] Health Maintenance Due Date Last Done Comments Adult Td,Tdap Booster 1960 LIPID PANEL 1960 SMOKING Hx and SMOKELESS TOBACCO SCREENING 1973 HEPATITIS C SCREENING 1978 HIV ONE-TIME SCREENING (18-65 YEARS) 1978 PAP SMEAR 1981 COLOGUARD 2005 COLONOSCOPY 2005 COLORECTAL CANCER SCREENING 2005 FIT TEST 2005 FOBT 2005 SIGMOIDOSCOPY 2005 VIRTUAL COLONOSCOPY 2005 ZOSTER VACCINES (1 of 2) 2010 PNEUMOCOCCAL VACCINES (50+ years) (2 of 2 - PCV) 10/06/2022 10/06/2021 INFLUENZA VACCINE (#1) 2025 , 05/05/2022, 03/16/2021 COVID-19 VACCINE ( season) 2025 04/28/2023, 04/27/2022, 04/18/2021, Additional history exists DEPRESSION SCREENING 03/17/2025 03/17/2024 MAMMOGRAM 07/24/2026 07/24/2024, 07/24/2024 SCREENING FOR DIABETES 04/22/2027 04/22/2024 RSV VACCINE Completed 04/28/2023 HEPATITIS A VACCINES Aged Out No long er eligible based on patient's age to complete this topic HIB VACCINES Aged Out No longer eligi ble based on patient's age to complete this topic MENINGOCOCCAL VACCINES (ACWY) Aged Out No longer eligible based on patient's age to complete this topic MENINGOCOCCAL VACCINES (B) Aged Out N o longer eligible based on patient's age to complete this topic Medical Devices Implanted Type Area Retread Operator Device Identifier Shelf Expiration Date Model / Serial / Lot Device Angio-Seal Vip 8fr .038in Closure Vascular - Minimum Order Of 10 Each - Uom Issue Use Ps # [id number] - [id number] Implanted:Qty: 1 on 04/23/2024 by Russell Mccoy MD, PhD at [facility] Closure Device Right: Groin [employer] 12/12/2024 [id number] / / [id number] Device Embolization 4.5x14mm Stent Pipeline Flex Shield Technology - [id number] Implanted:Qty: 1 on 04/23/2024 at [facility] [employer] [facility] 07/13/2025 PED2- 450- 14 / / [id number] Insurance HE[employer]NERSHIP ACO PARTNERSHIP ACO HEALTHY PARTNERSHIP ACO ACO ACO ACO Advance Directives For more information, please contact: [phone] (9AM - 5PM [place], Monday-Monday) * Full Code (Latest Code Status on File) Date Activated Date Inactivated Comments 04/24/2024 10:20 AM Question Answer Comments Code Status Confirmed With: Patient Code Status Communicated To: Inpatient Attending Care Teams Founder & Ceo Relationship Specialty Start Date End Date Praveena Nj NP [address] [place] [address] PCP - General Nurse Practitioner 02/29/24 Additional Source Comments The information contained in this document represents components of the legal health record. It is not the complete legal health record.[facility]
--- OUTSIDE RECORDS SUMMARY | 2025-04-21 09:10 | XMS_ITS | Encounter Summary ---
Author Organization [facility] Address [address] [facility] [address] [place] [address] Phone Care Team Providers Care Corporate Security Officer Name Role Phone Praveena Nj NP Primary Care Provider [phone] Encounter Details Date Type Department Care Team (Late st Contact Info) Description 03/18/[address] [facility] [address] [place] [address] Social History Tobacco Use Types Packs/Day Years Used Date Smoking Tobacco: Every Day Cigarettes Smokeless Tobacco: Never Alcohol Use Standard Drinks/Week Comments Yes 0 (1 standard drink = 0.6 oz pur e alcohol) Education Answer Date Recorded Are you interested in more education? Not on oly e 10/14/2022 Are you concerned about learning? Not on file 10/14/2022 No 10/14/2022 No 10/14/2022 Digital Access Answer Date Recorded No 11/12/2022 No 11/12/2022 Reliable internet access at home? Not on file 11/12/2022 Device with a working camera? Not on file Comments Unknown Sex and Gender Information Value Date Recorded Sex Assigned at Female 10/01/2018 12:18 PM EDT Legal Sex Female 12:04 PM EDT Gender Identity Female 10/01/2018 12:18 PM EDT Sexual Orientation Straight 03/01/2024 2: 39 PM EDT documented as of this encounter Plan of Treatment Upcoming Encounters Date Type Department Care Team (Late st Contact Info) Description 10/29/[address] [facility] Neuro Interventional Radiology [address] [place] [address] 04/29/2025 8:00 AM EST Hospital Encounter [facility] Neuro Interventional Radiology [address] [place] [address] Andreia Fields MD [address] [place] [address] Department of Neurosurgery, [address] [address] [email or web address] documented as of this encounter Visit Diagnoses Not on filedocumented in this encounter Care Teams Corporate Security Officer Relationship Specialty Start Date End Date Praveena Nj NP [address] [place] [address] PCP - General Nurse Practitioner 02/29/24 documented as of this encounter Additional Source Comments The information contained in this document represents components of the legal health record. It is not the complete legal health record.[facility]
--- OUTSIDE RECORDS SUMMARY | 2025-04-21 09:10 | XMS_ITS | Encounter Summary ---
Author Organization [facility] Address [address] [facility] [address] [place] [address] Phone Care Team Providers Care Patient Services Representative Name Role Phone Praveena Nj NP Primary Care Provider [phone] Encounter Details Date Type Department Care Team (Late st Contact Info) Description 04/17/[address] [facility] Department of Neurosurgery [address] [place] [address] Damien Blair, PA-C [address] [facility] 4th [place] [address] [email or web address] Pre-op examination (Primary Dx); Cerebral aneurysm, nonruptured Social History Tobacco Use Types Packs/Day Years [...] Contact Info) Description 10/29/[address] [facility] Neuro Interventional Radiology [address] [place] [address] 04/29/2025 8:00 AM EST Hospital Encounter [facility] Neuro Interventional Radiology [address] [place] [address] Andreia Fields MD [address] [place] [address] Department of Neurosurgery, [facility] [address] [place] [address] [email or web address] Scheduled Orders Name Type Priority Associated Diagnoses Orde r Schedule Comprehensive metabolic panel Lab Routine Pre-op examination Cerebral aneurysm, nonruptured Expected: 04/17/2025, Expires: 04/17/2026 documented as of this encounter Visit Diagnoses Diagnosis Pre-op examination- Primary Cerebral aneurysm, nonruptured documented in this encounter Care Teams Patient Services Representative Relationship Specialty Start Date End Date Praveena Nj NP [address] [place] [address] PCP - General Nurse Practitioner 02/29/24 documented as of this encounter Additional Source Comments The information contained in this document represents components of the legal health record. It is not the complete legal health record.[facility]
--- OUTSIDE RECORDS SUMMARY | 2025-04-21 09:10 | XMS_ITS | Encounter Summary ---
Author Organization [facility] Address [address] [place] [address] Phone Care Team Providers Care Service Establishment Attendant Name Role Phone Praveena Nj NP Primary Care Provider [phone] Encounter Details Date Type Department Care Team (Late st Contact Info) Description 03/13/2025 Telephone [facility] Neuro Interventional Radiology [address] [place] [address] Sadie Warner PA-C [address] [place] [address] [email or web address] Social History Tobacco Use Types Packs/Day Years [...] your housing situation today? I have moira martin 04/23/2024 How many times have you move [...] PM EDT documented as of this encounter Progress Notes * Sadie Warner PA-C - 03/13/2025 10:32 AM EDT Spoke with patient re: aspirin/advil interaction due to cold symptoms. Ok for one time, but recommended using Tylenol moving forward due to history of stomach ulcer/GI bleed and possible decrease in effectiveness of aspirin with NSAID use. Patient will wait to take aspirin 8 hours following ibuprofen dose at 9:30am per recommendations. Patient understands and in agreement with plan Sadie Warner PA-C Divisions of Vascular & Endovascular Neurosurgery MD Amor Mendoza MD Rose Du, MD Kai Frerichs, MD [facility] & [address] Scheduling: Office of Dr. Amor Myles: Office of Dr. Andreia Fields: F: [phone] Direct Line: [phone] [email or web address] documented in this encounter Plan of Treatment Upcoming Encounters Date Type Department Care Team (Late st Contact Info) Description 10/29/2024 Procedure Pass [facility] Neuro Interventional Radiology [address] [place] [address] 04/29/2025 8:00 AM EST Hospital Encounter [facility] Neuro Interventional Radiology [address] [place] [address] Andreia Fields MD [address] [place] [address] Department of Neurosurgery, [place] [address] [email or web address] documented as of this encounter Visit Diagnoses Not on filedocumented in this encounter Care Teams Service Establishment Attendant Relationship Specialty Start Date End Date Praveena Nj NP [address] [place] [address] PCP - General Nurse Practitioner 02/29/24 documented as of this encounter Additional Source Comments The information contained in this document represents components of the legal health record. It is not the complete legal health record.[facility]
--- OUTSIDE RECORDS SUMMARY | 2025-04-21 09:13 | XMS_ITS | Encounter Summary ---
Author Organization [facility] Address [address] [place] [address] Phone Care Team Providers Care Health Editor Name Role Phone Praveena Nj NP Primary Care Provider [phone] Encounter Details Date Type Department Care Team (Late st Contact Info) Description 05/13/2024 Procedure Pass [facility] L2 [address]U [address] [place] [address] Social History Tobacco Use Types Packs/Day Years [...] as food, clothing, or medical care? No 04/23/2024 In the past 12 months have y ou been in a relationship with a person who hurts, threatens, or tries to control you? No 04/23/2024 Are you denied basic needs s uch as food, clothing, or medical care? No 04/23/2024 In the past 12 months have y ou been in a relationship with a person who hurts, threatens, or tries to control you? No 04/23/2024 Comments Unknown Sex and Gender Information Value Date Recorded Sex Assigned at Female 10/01/2018 12:18 PM EDT Legal Sex Female 12:04 PM EDT Gender Identity Female 10/01/2018 12:18 PM EDT Sexual Orientation Straight 03/01/2024 2: 39 PM EDT documented as of this encounter Plan of Treatment Upcoming Encounters Date Type Department Care Team (Late st Contact Info) Description 10/29/2024 Procedure Pass [facility] Neuro Interventional Radiology [address] [place] [address] 04/29/2025 8:00 AM EST Hospital Encounter [facility] Neuro Interventional Radiology [address] [place] [address] Andreia Fields MD [address] [place] [address] Department of Neurosurgery, [address] [address] [email or web address] documented as of this encounter Visit Diagnoses Not on filedocumented in this encounter Care Teams Health Editor Relationship Specialty Start Date End Date Praveena Nj NP [address] [place] [address] PCP - General Nurse Practitioner 02/29/24 documented as of this encounter Additional Source Comments The information contained in this document represents components of the legal health record. It is not the complete legal health record.[facility]
--- OUTSIDE RECORDS SUMMARY | 2025-04-21 09:13 | XMS_ITS | Clinical Summary ---
Author Organization [facility] Address [address] [place] [address] Phone Care Team Providers Care House Coordinator Name Role Phone Ash Hinton MD Primary Care Provider [phone] Allergies Active Allergy Reactions Criticality Noted Date Comments Cephalexin Anaphylaxis High 12/04/2016 Throat tightness Uzbek Rarden 07/25/2017 walnuts Morphine Itching Medium 12/13/2018 Itchy all over Nut - Unspecified 07/25/2017 walnuts Penicillins Anaphylaxis High 12/04/2016 Itchy everywhere within 20 minutes and chest tightness [place] Seed 07/25/2017 [place] seeds Medications amLODIPine (NORVASC) 10 mg tablet Take 1 tablet (10 mg total) by mouth 1 (one) time each day. Active atorvastatin (LIPITOR) 80 mg tablet Take 1 tablet (80 mg total) by mouth daily. 4 Active nicotine (NICODERM CQ) 21 mg/24 hr - Route: Place 1 Patch onto the skin daily Active budesonide/glyc opyr/formoterol (BREZTRI AEROSPHERE INHL) INHALE 2 PUFFS TWICE A DAY 2 Active sertraline (ZOLOFT) 50 mg tablet Take 1 tablet (50 mg total) by mouth 1 (one) time each day. Active clopidogreL (PLAVIX) 75 mg tablet Take 1 tablet (75 mg total) by mouth 1 (one) time each day. Active aspirin 325 mg tablet Take 1 tablet (325 mg total) by mouth 1 (one) time each day. Active acetaminophen (TYLENOL) 325 mg tablet Take 2 tablets (650 mg total) by mouth every 6 hours as needed. 4 Active folic acid (FOLVITE) 400 mcg tablet Take 1 tablet (0.4 mg total) by mouth 1 (one) time each day. 5 Active ibuprofen (ADVIL,MOTRIN) 200 mg tablet Take 1 tablet (200 mg total) by mouth every 6 hours as needed. Active ipratropium-alb uteroL (DUONEB) 0.5-2.5 mg/3 mL nebulizer solution Take 3 mL by nebulization if needed for shortness of breath. Active pantoprazole (PROTONIX) 40 mg EC tablet Take 1 tablet (40 mg total) by mouth 2 (two) times a day. Active Active Problems Problem Noted Date Diagnosed Date HTN (hypertension) 10/16/2024 History of lung cancer 10/11/2024 Assessment & Plan (10/11/2024 10:27 AM EDT): Ms. Arvizu is a 64-year-old female who had a robotic right upper and middle bilobectomy for a minimally invasive adenocarcinoma in December 2022. The patient's most recent surveillance chest CT scan shows no new or worsening pulmonary nodule, or thoracic adenopathy to suggest recurrence or new disease. We will continue with routine chest CT surveillance the next which will be in 6 months, March 2025. She will have a follow-up visit after that. 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 Arvizu and believe some of her left-sided symptoms [...] Neuropathy involving both lower extremities 02/18 Acromegaly ([facility] V24, [facility] V28) 12/04/2016 Allergic rhinitis 12/04/2016 Hypersensitivity pneumonitis ([facility] V24, [facility]/H [facility] V28) 12/04/2016 Asthma 12/04/2016 Lung nodule 12/04/2016 Overview (07/25/2024): CT chest 11/21/17. Grossly stable multifocal small groundglass opacities throughout the lungs with upper lobe predominance. Encounters Date Type Department Care Team Description 04/15/2025 9:33 AM EDT - 04/15/2025 11:59 PM EDT Hospital Encounter [facility] CT Scan [address] [place] [id number] History of lung cancer Discharge Disposition: Home or Self Care 02/03/2025 Telephone Gastroenterology - [address] [facility] [address] [place] [address] Zoila Lewis MD from Last 3 Months Surgical History Surgery Date Site/Laterality Comments SECTION PROCEDURE: HISTORICAL DELIVERY COLPOSCOPY 2017 PROCEDURE: FL COLPOSCOPY ENTIRE VAGINA W/VAGINA/CERVIX BX; COMMENT: negative HAND SURGERY 11/07/2018 Right PROCEDURE: HISTORICAL HAND SURGERY; COMMENT: mass STEREOTACTIC CORE BIOPSY Left STENT BMS - PERIPHERAL Right brain Medical History Medical History Date Comments Lung [...] DX :Abnormal ultrasound of breast; COMMENT: Overview: [facility] US Breast uni limited lt 10/27/2017 Simple [...] + Postmenopausal bleeding 04/12/2019 DX:Postm enopausal bleeding Brain aneurysm Family History Medical History Relation Name Comments Breast cancer Mother Breast cancer Mother's Sister Breast cancer Niece Relation Name Status Comments Mother Mother's Sister Alive Niece Alive Social History Tobacco Use Types Packs/Day Years Used Date Smoking Tobacco: Former Cigarettes Q uit: 1979 Smokeless Tobacco: Current Tobacco Cessation:Ready to Q uit: Not Asked; Counseling Given: Not Answered Alcohol Use Standard Drinks/Week Comments Not Currently [...] Sign Reading Time Taken Comments Blood Pressure 108/65 10/16/2024 8:44 AM EDT Pulse 62 10/16/2024 8:44 AM EDT Temperature 36.3 C (97.3 F) 10/16/2024 8:24 AM EDT Respiratory Rate 16 10/16/2024 8:44 AM EDT Oxygen Saturation 96% 10/16/2024 8:44 AM EDT Inhaled Oxygen Concentration - - Weight 48.5 kg (107 lb) 10/16/2024 7:46 AM EDT Height 137.2 cm (4' 6 ) 10/16/2024 7:46 AM EDT Body Mass Index 25.8 10/16/2024 7:46 AM EDT Plan of Treatment Upcoming Encounters Date Type Department Care Team (Late st Contact Info) Description 04/24/2025 9:00 AM EST Office Visit Thoracic Surgery - [address] [place] [id number] Babs Templeton PA [address] [place] [address] Health Maintenance Due Date Last Done Comments Colorectal Cancer Screening: Colonoscopy 1960 Hepatitis A Vaccines (1 of 2 - Risk 2-dose series) 1979 Cervical Cancer Screening: Pap Smear 1981 Zoster Vaccines (1 of 2) 2010 Hepatitis B Vaccines (1 of 3 - Risk 3-dose series) 2020 Cholesterol Screening (Lipid Panel) 05/21/2022 HIV Screening 05/21/2022 Hepatitis C Screening 05/21/2022 Osteoporosis Screening (Bone Density Screening) 05/21/2022 Social Influencers of Health Screening 05/21/2022 Pneumococcal Vaccine: 50+ Years (2 of 2 - PCV) 10/06/2022 10/06/2021 Depression Screening 06/19/2024 COVID-19 Vaccine ( - season) 2025 04/28/2023, 04/27/2022, 04/18/2021, Additional history exists Influenza Vaccine (#1) 2025 , 05/05/2022, 03/16/2021 Hypertension/CHF/CAD Annual BMP Blood Test 04/22/2025 04/22/2024, 12/14/2018 Breast Cancer Screening 08/02/2026 08/02/19, 07/24/2024, 07/03/2023, [...] 9:57 AM EDT History of lung cancer MG MAMMO DIAGNOSTIC ADDL VIEWS LEFT Routine 08/02/2024 9:06 AM EST Breast mass, left from Last 3 Months or Most Recently Relevant to Health Maintenance Results * CT Chest wo Contrast (04/15/2025 [...] Signed Date: 04/21/2025 07:26 ET Workstation ID: [id number] Transcribed By: Self Edit Transcribed Date: 04/21/2025 [...] for a minimally invasive adenocarcinoma (pT1a(mi), pN0) inJuly 2022. COMPARISON: Portions of previous 09/30/24 TECHNIQUE: [...] Signed Date: 04/21/2025 07:26 ET Workstation ID: [id number] Transcribed By: Self Edit Transcribed Date: 04/21/2025 07:17 ET Babs [address] IMG CT PROCEDURES Final Resul t * MG Mammo Diagnostic Addl Views Left (08/02/2024 9:06 AM EST) Anatomical Region Laterality Modality Breast Left Mammography 08/02/2024 8:28 AM EST Impressions 08/02/2024 8:55 AM EST No mammographic or ultrasound evidence of malignancy. Benign cystic area with mammographic and ultrasound correlation. BI-RADS: Category 2: Benign RECOMMENDATION(S): Routine screening mammogram BILATERAL in 1 year. -------- FINAL REPORT -------- Dictated By: IMMANUEL FANG Dictated Date: 08/02/2024 08:28 ET Assigned Physician: IMMANUEL FANG Reviewed and Electronically Signed By: IMMANUEL FANG Signed Date: 08/02/2024 08:55 ET Workstation ID: [id number] Transcribed By: Self Edit Transcribed Date: 08/02/2024 08:44 ET Narrative 08/02/2024 8:55 AM EST EXAM: MG MAMMO DIAGNOSTIC ADDL VIEWS LEFT, US BREAST LIMITED LEFT [id number] EXAM DATE AND TIME: 08/02/2024 7:30 AM HISTORY: Additional views requested for mass in the left lower outer breast. COMPARISON: 07/24/2024 TECHNIQUE: Unilateral left digital breast tomosynthesis was performed in the CC and MLO projections as well as a full field true lateral. Computer aided detection with Vilynx 3D 3.1 was employed. FINDINGS: MAMMOGRAPHY TECHNIQUE: Bilateral MLO and CC views were obtained digitally with 3-D mammogram (digital breast tomosynthesis). Computer-aided detection was utilized in evaluation of this exam (CAD). The oval density in the left breast persist on spot compression views. The patient was referred to ultrasound for further evaluation. TISSUE DENSITY: b: There are scattered areas of fibroglandular density. ULTRASOUND TECHNIQUE: Targeted sonographic evaluation of the left was performed. Scanning was performed at 5 o'clock 3 to 4 cm from the nipple. This demonstrated a complex cystic area measuring 4 x 8 x 3 mm. This is benign. Procedure Note Immanuel Fang MD - 08/02/2024 EXAM: MG MAMMO DIAGNOSTIC ADDL VIEWS LEFT, US BREAST LIMITED LEFT [id number] EXAM DATE AND TIME: 08/02/2024 7:30 AM HISTORY: Additional views requested for mass in the left lower outerbreast. COMPARISON: 07/24/2024 TECHNIQUE: Unilateral left digital breast tomosynthesis was performed inthe CC and MLO projections as well as a full field true lateral. Computeraided detection with Vilynx 3D 3.1 was employed. FINDINGS: MAMMOGRAPHY TECHNIQUE: [...] Signed Date: 08/02/2024 08:55 ET Workstation ID: [id number] Transcribed By: Self Edit Transcribed Date: 08/02/2024 08:44 ET Ash Hinton MD IMG BI PROCEDURES Final Result from Last 3 Months or Most Recently Relevant to Health Maintenance Insurance [facility] MEDICAID ADVANTAGE Care Teams House Coordinator Relationship Specialty Start Date End Date Ash Hinton MD [address] [place] [id number] PCP - General 04/17/24
--- OUTSIDE RECORDS SUMMARY | 2025-04-21 09:13 | XMS_ITS | Patient Health Record ---
Author Organization [facility] Address [address] [place] [address] Care Team Providers Care Salad Chef Name Role Phone Brenna CARBALLO, Margarita Primary Care Provider Unavailable Sarah Durham Unavailable [phone] Tayo JUKE BOX MECHANIC, Arianne Unavailable Unavailable Allergies Allergen (clinical drug ingredient) Drug/Non Drug Allergy documented on EMR Reaction Allergy Type Onset Date Status Biaxin Itchy all over, chest feels tight, throat tightens Drug Allergy Active Keflex Unknown Drug Allergy Active amoxicillin Amoxicillin Unknown Drug Allergy Act kayleigh erythromycin Erythromycin Itchy all over, chest feels tight, throat tightens Drug Allergy Active Penicillin Itchy all over, chest feels tight, throat tightens Drug Allergy Active Reason For Referral No Information Medications Medication SIG (Take, Route, Frequency, Duration) Notes Start Date End Date Status Symbicort Active Social History Tobacco Use: Social History Observation Description Date Details (start date - stop date) Former Smoker NA - NA Tobacco Use/Smoking Question Answer Notes Are you a: former smoker Additional Findings: Tobacco Non-User Current no n-smoker Alcohol Screen Question Answer Notes Did you have a drink contain ing alcohol in the past year? Yes How often did you have a dri nk containing alcohol in the past year? 4 or more times a week (4 points) Points 4 Interpretation Positive Tobacco use other than smoking: Question Answer Notes Are you an other tobacco user? No Plan Of Treatment No Information Insurance Providers Payer Name Payer Address Payer Phone Subscriber Number Group Number Insured Name Patient Relationship to Insured Coverage Start Date Coverage End Date [facility] [address] [place] [address] [id number] Anastasia Minor Self - patient is the insured Medical (General) History Medical History History ICD Code Anxiety asthma Lung disease raynauds disease Surgical History Surgery Date(Month/Year) X2 Hand Surgery
== END 2025-04-21 09:23 | disposition home or self-care (01) ==
PROVIDERS: PCP Nurse Practitioner Family; Visit Provider Hospitalist
DX: J44.1 Chronic obstructive pulmonary disease with (acute) exacerbation (principal); C34.11 Malignant neoplasm of upper lobe, right bronchus or lung; G47.33 Obstructive sleep apnea (adult) (pediatric)
CPT/HCPCS: 99214; G2211

== ENCOUNTER → 2025-04-21 08:41 | Outpatient (BNVA) | payer OTHER, SELFPAY | PROVIDERS: PCP Nurse Practitioner Family; Visit Provider Hospitalist | DX: J44.1 Chronic obstructive pulmonary disease with (acute) exacerbation (principal); C34.11 Malignant neoplasm of upper lobe, right bronchus or lung; Z91.048 Other nonmedicinal substance allergy status; G47.33 Obstructive sleep apnea (adult) (pediatric) | CPT/HCPCS: 99212 ==